=== PATIENT | male | born 1990 | race Caucasian/White ===

== ENCOUNTER 2019-10-04 14:43 | Inpatient (IN) | payer OTHER ==
--- NOTE | 2019-10-04 14:59 | BHS.RME ---
Substance Use & Tx History - Substance Use History Heroin Substance amount: 4 bundles Frequency of use: Daily Substance route: Inhalation (ex: sniffing or snorting), Injection (ex: intravenous or skin popping) Date of Last Use: 10/02/19 Nicotine Substance amount: 1 pack Frequency of use: Daily Substance route: Smoking Date of Last Use: 10/04/19 Physical/Psych/Mental Status - Behavior General Behavior: Increased activity (restlessness, agitation) Eye Contact: Normal - Cooperativeness Cooperativeness: Cooperative - Thinking Thought Processes: Tight, Logical, Goal Directed - Physical Health Problems Is patient presently having any pain?: No Does patient presently have any injuries (include location): No Does patient currently have a fever: No Is patient : No COWS - Scale Resting Pulse: 1= [place] 81-100 Sweatin=Flushed/Facial Moisture Restless Observation: 1= Difficult to Sit Still Pupil Size: 2= Moderately Dilated Bone or Joint Aches: 2= Severe Diffuse Aches Runny Nose/ Eye Tearin= Runny Nose/Eyes GI Upset > 30mins: 1= Stomach Cramp Tremor Observation: 1= Tremor [place], Not Seen Yawning Observation: 1= 1-2x During Session Anxiety or Irritability: 2=Irritable/Anxious Goose Flesh Skin: 3=Piloerection COWS Score: 18
--- NOTE | 2019-10-04 17:34 | HP ---
<Silvina Weiss - Last Filed: 10/04/19 18:10> CIWA Score - Admission Criteria OASAS Guidelines: Admission for Medically Managed Detox: Requires at least one of the followin. CIWA greater than 12 2. Seizures within the past 24 hours 3. Delirium tremens within the past 24 hours 4. Hallucinations within the past 24 hours 5. Acute intervention needed for co occurring medical disorder 6. Acute intervention needed for co occurring psychiatric disorder 7. Severe withdrawal that cannot be handled at a lower level of care (continued vomiting, continued diarrhea, abnormal vital signs) requiring intravenous medication and/or fluids 8. <Mark Mccarthy - Last Filed: 10/04/19 18:35> COWS - Scale Resting Pulse: 1= [place] 81-100 Sweatin=Flushed/Facial Moisture Restless Observation: 1= Difficult to Sit Still Pupil Size: 2= Moderately Dilated Bone or Joint Aches: 2= Severe Diffuse Aches Runny Nose/ Eye Tearin= Runny Nose/Eyes GI Upset > 30mins: 1= Stomach Cramp Tremor Observation: 1= Tremor [place], Not Seen Yawning Observation: 1= 1-2x During Session Anxiety or Irritability: 2=Irritable/Anxious Goose Flesh Skin: 3=Piloerection COWS Score: 18 CIWA Score - Admission Criteria OASAS Guidelines: Admission for Medically Managed Detox: Requires at least one of the followin. CIWA greater than 12 2. Seizures within the past 24 hours 3. Delirium tremens within the past 24 hours 4. Hallucinations within the past 24 hours 5. Acute intervention needed for co occurring medical disorder 6. Acute intervention needed for co occurring psychiatric disorder 7. Severe withdrawal that cannot be handled at a lower level of care (continued vomiting, continued diarrhea, abnormal vital signs) requiring intravenous medication and/or fluids 8. Admitting History and Physical - Admission Chief Complaint: Mr. Ney Michael is a 28yo male who presents to [facility] today requesting for detox from opiates. History of Present Illness: Mr. Ney Michael is a 28yo male who presents to [facility] today requesting for detox from opiates. PMH:NONE PSH:NONE PSYCH:DEPRESSION,ANXIETY-NOT ON MEDS FOR 2 MONTHS NOW SOCIAL/DOMICILED: LIVES IN [place] WITH FATHER LEGAL:NONE Substance Use & Tx History - Substance Use History Heroin Substance amount: 4 bundles Frequency of use: Daily Substance route: Inhalation (ex: sniffing or snorting), Injection (ex: intravenous or skin popping) Date of Last Use: 10/02/19 First use: Age 23 Nicotine Substance amount: 1/2-1 pack Frequency of use: Daily Substance route: Smoking Date of Last Use: 10/04/19 Admission ROS S - HPI Chief Complaint: Mr. Ney Michael is a 28yo male who presents to [facility] today requesting for detox from opiates. Exam Limitations: No Limitations - Ebola screening Have you traveled outside of the country in the last 21 days: No Have you been sick,other than usual withdrawal symptoms: No Do you have a fever: No - Review of Systems Constitutional: Chills, Diaphoresis EENT: reports: No Symptoms Reported Respiratory: reports: No Symptoms reported Cardiac: reports: No Symptoms Reported GI: reports: No Symptoms Reported : reports: No Symptoms Reported Musculoskeletal: reports: No Symptoms Reported Integumentary: reports: Lumps Neuro: reports: No Symptoms reported Endocrine: reports: No Symptoms Reported Hematology: reports: No Symptoms Reported Psychiatric: reports: Orientated x3, Anxious, Depressed (ANXIETY, DEPRESSION; NOT ON MEDS) Patient History - PPD History Previous Implant?: Yes Documented Results: Negative w/proof Implanted On Prior [facility] Admission?: No PPD to be Administered?: Yes - Smoking Cessation Smoking history: Current every day smoker Have you smoked in the past 12 months: Yes Aproximately how many cigarettes per day: 10 Hx Chewing Tobacco Use: No Initiated information on smoking cessation: Yes 'Breaking Loose' booklet given: 10/04/19 Admission Physical Exam [facility] Physical General Appearance: Yes: Within Normal Limits, No Apparent Distress, Nourished, Appropriately Dressed HEENTM: Yes: Within Normal Limits, EOMI, Hearing grossly Normal, Normocephalic, Normal Voice, MARIANA Respiratory: Yes: Within Normal Limits, Chest Non-Tender, Lungs Clear, Normal Breath Sounds, No Respiratory Distress, No Accessory Muscle Use Neck: Yes: Within Normal Limits, No masses,lesions,Nodules, Supple Cardiology: Yes: Within Normal Limits, Regular Rhythm, Regular Rate, S1, S2 Abdominal: Yes: Within Normal Limits, Normal Bowel Sounds, Non Tender, Flat, Soft Genitourinary: Yes: Within Normal Limits Back: Yes: Within Normal Limits, Normal Inspection Musculoskeletal: Yes: Within Normal Limits Extremities: Yes: Within Normal Limits, Normal Capillary Refill, Normal Inspection, Normal Range of Motion, Non-Tender Neurological: Yes: Within Normal Limits, Fully Oriented, Alert Integumentary: Yes: Within Normal Limits, Normal Color - Diagnostic (1) Heroin dependence Current Visit: Yes Status: Chronic (2) Nicotine dependence Current Visit: Yes Status: Chronic Cleared for Admission [facility] - Detox or Rehab [facility] Level of Care: Medically Managed Detox Regimen/Protocol: Librium, Methadone Screened but not Admitted - Documentation of Visit Screened but not Admitted: No Breathalyzer - Breathalyzer Breathalyzer: 0 Urine Drug Screen - Results Urine drug screen results: THC-Marijuana, DALIA-Cocaine, FEN-Fentanyl, MOP-Opiates Inpatient Rehab Admission - Rehab Decision to Admit Inpatient rehab admission?: No
[2019-10-04] MEDS ORDERED: METHADONE HCL 10 MG TABLET (FOR DETOX USE ONLY) PO ONE (17:45)
[2019-10-04] MEDS ORDERED: MAGNESIUM HYDROX 2400MG/30ML ORAL SUSPENSION 30 ML CUP PO PRN (17:45)
[2019-10-04] MEDS ORDERED: ONDANSETRON *ODT* 4 MG TABLET SL ONE (17:45)
[2019-10-04] MEDS ORDERED: MAG HYDROX/AL HYDROX/SIMETH 30 ML UNIT-DOSE CUP PO PRN (17:45)
[2019-10-04] MEDS ORDERED: chlordiazePOXIDE HCL 25 MG CAPSULE PO PRN (17:45)
[2019-10-04] MEDS ORDERED: BISMUTH SUBSALICYLATE 524 MG/30 ML UD PO PRN (17:45)
[2019-10-04] MEDS ORDERED: MAGNESIUM CITRATE 300 ML BOTTLE PO PRN (17:45)
[2019-10-04] MEDS ORDERED: ACETAMINOPHEN 325 MG TABLET (FP) PO PRN ×2 (17:45)
[2019-10-04] MEDS ORDERED: IBUPROFEN 400 MG TABLET (FP) PO PRN (17:45)
[2019-10-04] MEDS ORDERED: MENTHOL/PHENOL 1 EACH UD MM PRN (17:45)
[2019-10-04] MEDS ORDERED: cloNIDine HCL 0.1 MG TABLET PO PRN (17:45)
[2019-10-04] MEDS ORDERED: hydrOXYzine PAMOATE 25 MG CAPSULE (FP) PO SCH (18:00)
[2019-10-04] MEDS ORDERED: NICOTINE 14 MG/24 HOURS TOPICAL PATCH TD SCH (18:00)
--- NOTE | 2019-10-04 18:15 | PN ---
Teaching Attending Note Name of Resident: Mark Mccarthy ATTENDING PHYSICIAN STATEMENT I saw and evaluated the patient. I reviewed the resident's note and discussed the case with the resident. I agree with the resident's findings and plan as documented. SUBJECTIVE: 28 y.o. male requesting detox from heroin use , reports 2-3 bundles via IV , latest use Tuesday ( 2 days ago ) utox : fen , mop , rivera , thc admits to cocaine use via inhalation . This is his 1st detox . tobacco : 1/2 ppd -1 ppd denies any medical / psych issues. OBJECTIVE: wnwd P 82 BP 115/63 ASSESSMENT AND PLAN: OUD - Methadone detox
[2019-10-04] MEDS ORDERED: ONDANSETRON *ODT* 4 MG TABLET SL PRN (18:18)
[2019-10-04] MEDS ORDERED: MELATONIN 5 MG TABLETS PO PRN (18:19)
[2019-10-04 19:51] VITALS: BMI 25.7
[2019-10-04] MEDS: PRENATAL VITAMINS W/ FOLIC ACID TABLET (FP) PO SCH (20:53)
[2019-10-04] MEDS: NICOTINE POLACRILEX 2 MG GUM BUC PRN (20:57)
[2019-10-04] MEDS ORDERED: MELATONIN 5 MG TABLETS PO SCH (22:00)
[2019-10-04] MEDS: THIAMINE HCL 100 MG TABLET (FP) PO SCH (22:33)
[2019-10-04] MEDS ORDERED: chlordiazePOXIDE HCL 25 MG CAPSULE PO SCH (23:00)
[2019-10-05] MEDS: NICOTINE POLACRILEX 2 MG GUM BUC PRN ×3 (08:41→17:36)
[2019-10-05] MEDS ORDERED: METHADONE HCL 10 MG TABLET (FOR DETOX USE ONLY) ONE (09:39)
[2019-10-05] MEDS ORDERED: METHADONE HCL 5 MG TABLET (FOR DETOX USE ONLY) ONE (09:40)
--- NOTE | 2019-10-05 09:58 | PN ---
S COWS - Scale Resting Pulse: 0= [place] 80 or Below Sweatin= No chills or Flushing Restless Observation: 0= Sits Still Pupil Size: 2= Moderately Dilated Bone or Joint Aches: 0= None Runny Nose/ Eye Tearin= None GI Upset > 30mins: 0= None Tremor Observation of Outstretched Hands: 0= None Yawning Observation: 0= None Anxiety or Irritability: 0= None Goose Flesh Skin: 0=Smooth Skin COWS Score: 2 BHS Progress Note (SOAP) Subjective: Home Medication List Medication Instructions Recorded Confirmed Type NK [No Known Home Medication] 10/04/19 10/04/19 History Active Medications Generic Name Dose Route Start Last Admin Trade Name Freq PRN Reason Stop Dose Admin Acetaminophen 650 mg 10/04/19 17:45 Tylenol - PO Q6H PRN PAIN LEVEL 4 - 6 Acetaminophen 650 mg 10/04/19 17:45 Tylenol - PO Q6H PRN FEVER Al Hydroxide/Mg Hydroxide 30 ml 10/04/19 17:45 Mylanta Oral Suspension - PO Q6H PRN DYSPEPSIA Bismuth Subsalicylate 524 mg 10/04/19 17:45 Pepto-Bismol - PO Q1H PRN DIARRHEA Clonidine 0.1 mg 10/04/19 17:45 Catapres - PO 10/06/19 23:59 Q4H PRN Withdrawal Symptoms Eucalyptus/Menthol/Phenol/Sorbitol 1 each 10/04/19 17:45 Cepastat Lozenge - MM 10/10/19 17:45 Q4H PRN SORE THROAT Hydroxyzine Pamoate 25 mg 10/04/19 18:17 Vistaril - PO 10/10/19 17:45 Q4H PRN ANXIETY Ibuprofen 400 mg 10/04/19 17:45 Motrin - PO Q6H PRN PAIN LEVEL 1 - 3 Magnesium Citrate 300 ml 10/04/19 17:45 Citroma - PO Q48H PRN CONSTIPATION Magnesium Hydroxide 30 ml 10/04/19 17:45 Milk Of Magnesia - PO PRN PRN CONSTIPATION Melatonin 5 mg 10/04/19 18:19 Melatonin PO HS PRN INSOMNIA Methadone HCl 5 mg 10/09/19 06:00 Dolophine - PO 10/09/19 06:01 ONCE@0600 ONE Methadone HCl 10 mg 10/08/19 10:00 Dolophine - PO 10/08/19 10:01 ONCE ONE Methadone HCl 20 mg 10/06/19 10:00 Dolophine - PO 10/06/19 10:01 ONCE ONE Methadone HCl 20 mg/ Methadone 25 mg 10/05/19 10:00 HCl 5 mg PO 10/05/19 10:01 ONCE ONE Methadone HCl 10 mg/ Methadone 15 mg 10/07/19 10:00 HCl 5 mg PO 10/07/19 10:01 ONCE ONE Methocarbamol 500 mg 10/04/19 17:45 Robaxin - PO 10/10/19 17:45 Q6H PRN MUSCLE SPASMS Nicotine Polacrilex 2 mg 10/04/19 17:45 10/05/19 08:41 Nicorette Gum - BUC 2 mg Q2H PRN Administration NICOTINE REPLACEMENT RX Ondansetron HCl 4 mg 10/04/19 18:18 Zofran Odt - SL BID PRN NAUSEA Multivit/Folic Acid/Iron 1 tab 10/04/19 17:45 10/04/19 20:53 Vitamins (Sjr) - PO 1 tab DAILY NELLIE Administration Thiamine HCl 100 mg 10/04/19 22:00 10/04/19 22:33 Vitamin B1 - PO Not Given HS NELLIE Objective: 10/05/19 09:57 PE 10/05/19 09:57 PE Gnl: WDWN, in no distress, in bed Mental status: nl mentation Motor: no tremor Coordination: nl Assessment: 10/05/19 09:57 1. Opioid use disorder Plan: 1. Methadone protocol, anticipated discharege on 10/08 2. routine labs drawn today
[2019-10-05] MEDS ORDERED: METHADONE (DETOX) 20 MG, METHADONE (DETOX) 5 MG PO ONE (10:00)
--- NOTE | 2019-10-05 10:00 | CONSULT ---
[facility] Psychiatric Consult - Data Date of interview: 10/05/19 Admission source: Self-referred Identifying data: Mr Michael is a 29 years old single male, unemployed with no source of income, domiciled living with family seeking detox treatment for opioid Substance Abuse History: Reports history of heroin use. Refer to addiction counselor's summary for further information Medical History: Unremakable. Smokes 10 cigarettes daily Psychiatric History: This is patient's first admission to this facility. Reports that he has been receiving treatment for Panic Disorder on & off for the past 10 years. Reports that he has seen several psychiatrists and he has been prescribed different medications including Prozac and Klonopin. Told staff writer that his most recent psychiatric contact and treatment was a couple of years ago. Denies previous psychiatric hospitalization or suicidal attempt. At present, reports feeling mildly anxious and sleeping poorly Physical/Sexual Abuse/Trauma History: Denies history of abuse as a child or DV relationship as an adult Mental Status Exam - Mental Status Exam Alert and Oriented to: Time, Place, Person Cognitive Function: Fair Patient Appearance: Well Groomed Mood: Anxious Affect: Appropriate Patient Behavior: Cooperative Speech Pattern: Clear Voice Loudness: Normal Thought Process: Intact, Goal Oriented Thought Disorder: Not Present Hallucinations: Denies Suicidal Ideation: Denies Homicidal Ideation: Denies Insight/Judgement: Poor Sleep: Poorly Appetite: Good Muscle strength/Tone: Normal Gait/Station: Normal Psychiatric Findings - Problem List ([place] 1, 2,3) (1) Anxiety disorder Current Visit: Yes Status: Chronic (2) Panic disorder Current Visit: Yes Status: Ruled-out (3) Substance-induced anxiety disorder Current Visit: Yes Status: Acute (4) Substance-induced sleep disorder Current Visit: Yes Status: Acute (5) Uncomplicated opioid dependence Current Visit: Yes Status: Acute (6) Nicotine dependence Current Visit: Yes Status: Chronic - Initial Treatment Plan Initial Treatment Plan: 1) Start Belsomra 10 mg po HS prn for insomnia and Vistaril 50 mg po Q 4hrs prn for anxiety. 3) Continue inpatient detoxification
[2019-10-05] MEDS: PRENATAL VITAMINS W/ FOLIC ACID TABLET (FP) PO SCH (10:04)
[2019-10-05 11:09] LABS: HEMATOCRIT 37.1 % (35.4-49); HEMOGLOBIN 12.4 GM/dL (11.7-16.9); MCH 29.1 pg (25.7-33.7); MCHC 33.3 g/dl (32.0-35.9); MEAN CELL VOLUME 87.2 fl (80-96); MEAN PLT VOLUME 10.7 fl (7.5-11.1); PLATELET COUNT 208 K/MM3 (134-434); RBC 4.25 M/mm3 (4.00-5.60)
[2019-10-05 11:34] LABS: ALBUMIN 3.6 g/dl (3.4-5.0); BILIRUBIN,TOTAL 0.3 mg/dL (0.2-1); BLOOD UREA NITROGEN 15.9 mg/dL (7-18); CALCIUM 9.1 mg/dL (8.5-10.1); CREATININE 0.8 mg/dL (0.55-1.3); POTASSIUM 3.9 mmol/L (3.5-5.1); TOT PROT 6.5 g/dl (6.4-8.2)
--- NOTE | 2019-10-05 13:21 | EKG ---
Test Reason : Blood Pressure : / mmHG Vent. Rate : 055 BPM Atrial Rate : 055 BPM P-R Int : 134 ms QRS Dur : 088 ms QT Int : 434 ms P-R-T Axes : 044 085 062 degrees QTc Int : 415 ms SINUS BRADYCARDIA WITH SINUS ARRHYTHMIA EARLY REPOLARIZATION NO PREVIOUS ECGS AVAILABLE Confirmed by SAURABH BAÑUELOS MD ([id number]) on 10/05/2019 1:21:37 PM Referred By: Confirmed By:SAURABH BAÑUELOS MD
[2019-10-05] MEDS: hydrOXYzine PAMOATE 25 MG CAPSULE (FP) PO PRN ×2 (13:48→22:23)
[2019-10-05] MEDS: METHOCARBAMOL 500 MG TABLET PO PRN (13:48)
[2019-10-05] MEDS ORDERED: SUVOREXANT 10 MG TABLET PO PRN (22:00)
[2019-10-05] MEDS: THIAMINE HCL 100 MG TABLET (FP) PO SCH (22:22)
[2019-10-06] MEDS ORDERED: chlordiazePOXIDE HCL 25 MG CAPSULE PO SCH (05:00)
[2019-10-06] MEDS ORDERED: METHADONE HCL 10 MG TABLET (FOR DETOX USE ONLY) PO ONE (10:00)
[2019-10-06] MEDS: PRENATAL VITAMINS W/ FOLIC ACID TABLET (FP) PO SCH (10:17)
[2019-10-06] MEDS: hydrOXYzine PAMOATE 25 MG CAPSULE (FP) PO PRN ×2 (10:17→15:22)
[2019-10-06] MEDS: METHOCARBAMOL 500 MG TABLET PO PRN (10:18)
--- NOTE | 2019-10-06 13:09 | PN ---
BHS COWS - Scale Resting Pulse: 0= [place] 80 or Below Sweatin= Beads of Sweat on Face Restless Observation: 1= Difficult to Sit Still Pupil Size: 0= Normal to Room Light Bone or Joint Aches: 1= Mild Discomfort Runny Nose/ Eye Tearin= None GI Upset > 30mins: 0= None Tremor Observation of Outstretched Hands: 0= None Yawning Observation: 1= 1-2x During Session Anxiety or Irritability: 2=Irritable/Anxious Goose Flesh Skin: 0=Smooth Skin COWS Score: 8 BHS Progress Note (SOAP) Subjective: c/o anxiety, muscle aches, sweats, and irritability. Objective: 10/06/19 13:09 Vital Signs 10/06/19 10/06/19 06:18 09:09 Temperature 98.0 F 96.5 F L Pulse Rate 53 L 56 L Respiratory 18 16 Rate Blood Pressure 103/66 114/65 O2 Sat by Pulse 98 Oximetry (%) Laboratory Last Values WBC 7.0 K/mm3 (4.0-10.0) 10/05/19 07:05 RBC 4.25 M/mm3 (4.00-5.60) 10/05/19 07:05 Hgb 12.4 GM/dL (11.7-16.9) 10/05/19 07:05 Hct 37.1 % (35.4-49) 10/05/19 07:05 MCV 87.2 fl (80-96) 10/05/19 07:05 MCH 29.1 pg (25.7-33.7) 10/05/19 07:05 MCHC 33.3 g/dl (32.0-35.9) 10/05/19 07:05 RDW 14.0 % (11.9-15.9) 10/05/19 07:05 Plt Count 208 K/MM3 (134-434) 10/05/19 07:05 MPV 10.7 fl (7.5-11.1) 10/05/19 07:05 Sodium 143 mmol/L (136-145) 10/05/19 07:05 Potassium 3.9 mmol/L (3.5-5.1) 10/05/19 07:05 Chloride 110 mmol/L (98-107) H 10/05/19 07:05 Carbon Dioxide 27 mmol/L (21-32) 10/05/19 07:05 Anion Gap 6 MMOL/L (8-16) L 10/05/19 07:05 BUN 15.9 mg/dL (7-18) 10/05/19 07:05 Creatinine 0.8 mg/dL (0.55-1.3) 10/05/19 07:05 Est GFR (CKD-EPI)AfAm 137.96 10/05/19 07:05 Est GFR (CKD-EPI)NonAf 119.03 10/05/19 07:05 Random Glucose 96 mg/dL (74-106) 10/05/19 07:05 Calcium 9.1 mg/dL (8.5-10.1) 10/05/19 07:05 Total Bilirubin 0.3 mg/dL (0.2-1) 10/05/19 07:05 AST 14 U/L (15-37) L 10/05/19 07:05 ALT 25 U/L (13-61) 10/05/19 07:05 Alkaline Phosphatase 84 U/L (45-117) 10/05/19 07:05 Total Protein 6.5 g/dl (6.4-8.2) 10/05/19 07:05 Albumin 3.6 g/dl (3.4-5.0) 10/05/19 07:05 Syphilis Serology Non-reactive (NONREACTIVE) 10/05/19 07:05 Labs noted. Assessment: 10/06/19 13:09 AOx 3, in no acute respiratory distress. Full ROM, ambulating in the unit. Withdrawal symptoms. Plan: continue detox.
[2019-10-06] MEDS: NICOTINE POLACRILEX 2 MG GUM BUC PRN (13:20)
[2019-10-06 13:24] VITALS: BP 145/72; PULSE 78; TEMP 97.1
--- NOTE | 2019-10-06 19:42 | DS ---
[facility] Detox Discharge Summary Admission Date: 10/04/19 Discharge Date: 10/06/19 - Physical Exam Results Vital Signs: Vital Signs Temperature 97.1 F L 10/06/19 12:35 Pulse Rate 78 10/06/19 12:35 Respiratory Rate 18 10/06/19 12:35 Blood Pressure 145/72 10/06/19 12:35 O2 Sat by Pulse Oximetry (%) 95 10/06/19 12:35 Pertinent Admission Physical Exam Findings: WITHDRAWAL SX Laboratory Last Values WBC 7.0 K/mm3 (4.0-10.0) 10/05/19 07:05 RBC 4.25 M/mm3 (4.00-5.60) 10/05/19 07:05 Hgb 12.4 GM/dL (11.7-16.9) 10/05/19 07:05 Hct 37.1 % (35.4-49) 10/05/19 07:05 MCV 87.2 fl (80-96) 10/05/19 07:05 MCH 29.1 pg (25.7-33.7) 10/05/19 07:05 MCHC 33.3 g/dl (32.0-35.9) 10/05/19 07:05 RDW 14.0 % (11.9-15.9) 10/05/19 07:05 Plt Count 208 K/MM3 (134-434) 10/05/19 07:05 MPV 10.7 fl (7.5-11.1) 10/05/19 07:05 Sodium 143 mmol/L (136-145) 10/05/19 07:05 Potassium 3.9 mmol/L (3.5-5.1) 10/05/19 07:05 Chloride 110 mmol/L (98-107) H 10/05/19 07:05 Carbon Dioxide 27 mmol/L (21-32) 10/05/19 07:05 Anion Gap 6 MMOL/L (8-16) L 10/05/19 07:05 BUN 15.9 mg/dL (7-18) 10/05/19 07:05 Creatinine 0.8 mg/dL (0.55-1.3) 10/05/19 07:05 Est GFR (CKD-EPI)AfAm 137.96 10/05/19 07:05 Est GFR (CKD-EPI)NonAf 119.03 10/05/19 07:05 Random Glucose 96 mg/dL (74-106) 10/05/19 07:05 Calcium 9.1 mg/dL (8.5-10.1) 10/05/19 07:05 Total Bilirubin 0.3 mg/dL (0.2-1) 10/05/19 07:05 AST 14 U/L (15-37) L 10/05/19 07:05 ALT 25 U/L (13-61) 10/05/19 07:05 Alkaline Phosphatase 84 U/L (45-117) 10/05/19 07:05 Total Protein 6.5 g/dl (6.4-8.2) 10/05/19 07:05 Albumin 3.6 g/dl (3.4-5.0) 10/05/19 07:05 Syphilis Serology Non-reactive (NONREACTIVE) 10/05/19 07:05 COVID-19 ([facility]) Not detected (Not Detected) 10/04/19 23:00 - Medication Discharge Medications: Ambulatory Orders NK [No Known Home Medication] 10/04/19 - Diagnosis (1) Substance-induced sleep disorder Current Visit: Yes Status: Acute (2) Uncomplicated opioid dependence Current Visit: Yes Status: Acute (3) Nicotine dependence Current Visit: Yes Status: Chronic Qualifiers: Nicotine product type: cigarettes Substance use status: uncomplicated Qualified Code(s): F17.210 - Nicotine dependence, cigarettes, uncomplicated - AMA Did Patient Leave Against Medical Advice: Yes
[2019-10-07] MEDS ORDERED: chlordiazePOXIDE HCL 10 MG CAPSULE PO PRN
[2019-10-07] MEDS ORDERED: chlordiazePOXIDE HCL 10 MG CAPSULE PO SCH (05:00)
[2019-10-07] MEDS ORDERED: METHADONE (DETOX) 10 MG, METHADONE (DETOX) 5 MG PO ONE (10:00)
[2019-10-08] MEDS ORDERED: chlordiazePOXIDE HCL 10 MG CAPSULE PO SCH (05:00)
[2019-10-08] MEDS ORDERED: METHADONE HCL 10 MG TABLET (FOR DETOX USE ONLY) PO ONE (10:00)
[2019-10-09] MEDS ORDERED: chlordiazePOXIDE HCL 10 MG CAPSULE PO ONE (05:00)
[2019-10-09] MEDS ORDERED: METHADONE HCL 5 MG TABLET (FOR DETOX USE ONLY) PO ONE (06:00)
== END 2019-10-06 19:30 | disposition left against medical advice (07) | DRG 770 ==
LOC: YASAS 14:43 → Y3N 18:40
PROVIDERS: ADMIT Allergy & Immunology; ATTEND Allergy & Immunology
PROC: HZ2ZZZZ Detoxification Services for Substance Abuse Treatment (ICD-10-PCS; principal; 2019-10-04)
DX: F11.23 Opioid dependence with withdrawal (principal); F14.10 Cocaine abuse, uncomplicated; F17.210 Nicotine dependence, cigarettes, uncomplicated; F19.282 Other psychoactive substance dependence with psychoactive substance-induced sleep disorder; F19.280 Other psychoactive substance dependence with psychoactive substance-induced anxiety disorder; F41.9 Anxiety disorder, unspecified; F41.0 Panic disorder [episodic paroxysmal anxiety]; F32.9 Major depressive disorder, single episode, unspecified
CPT/HCPCS: 36415; 80053; 85027; 86780; 93005; 93010; U0003

== ENCOUNTER 2019-10-08 08:41 | Inpatient (IN) | payer OTHER ==
--- NOTE | 2019-10-08 09:00 | BHS.RME ---
COWS - Scale Resting Pulse: 0= [place] 80 or Below Sweatin=Flushed/Facial Moisture Restless Observation: 3= Extraneous Movement Pupil Size: 1= Pupils >than Normal Bone or Joint Aches: 4=Acute Joint/Muscle Pain Runny Nose/ Eye Tearin= Runny Nose/Eyes GI Upset > 30mins: 1= Stomach Cramp Tremor Observation: 2= Slight Tremor Visible Yawning Observation: 2= >3x During Session Anxiety or Irritability: 2=Irritable/Anxious Goose Flesh Skin: 3=Piloerection COWS Score: 22
[2019-10-08 09:33] VITALS: BMI 25.4
--- NOTE | 2019-10-08 10:12 | HP ---
COWS - Scale Resting Pulse: 0= [place] 80 or Below Sweatin=Flushed/Facial Moisture Restless Observation: 3= Extraneous Movement Pupil Size: 1= Pupils >than Normal Bone or Joint Aches: 4=Acute Joint/Muscle Pain Runny Nose/ Eye Tearin= Runny Nose/Eyes GI Upset > 30mins: 1= Stomach Cramp Tremor Observation: 2= Slight Tremor Visible Yawning Observation: 2= >3x During Session Anxiety or Irritability: 2=Irritable/Anxious Goose Flesh Skin: 3=Piloerection COWS Score: 22 CIWA Score - Admission Criteria OASAS Guidelines: Admission for Medically Managed Detox: Requires at least one of the followin. CIWA greater than 12 2. Seizures within the past 24 hours 3. Delirium tremens within the past 24 hours 4. Hallucinations within the past 24 hours 5. Acute intervention needed for co occurring medical disorder 6. Acute intervention needed for co occurring psychiatric disorder 7. Severe withdrawal that cannot be handled at a lower level of care (continued vomiting, continued diarrhea, abnormal vital signs) requiring intravenous medication and/or fluids 8. Admitting History and Physical - Admission Chief Complaint: " I want to do it right this time." History of Present Illness: 29 year old male with opioid dependence with withdrawal. He was not able to complete detox 10/03-10/06/19 due to conflicts with other patients and poor attitudes by other patients while in detox. Heroin: 4 bundles IN daily at age 23 and last used 10/07/19 3AM, never order dose and does not carry narcan Nicotine: 1 pack, SM started at age 16, last 10/08/19. PMH: None Psurg: None Psych: Depression, Anxiety - No meds x 2 months Lives in [place] with father. No legal issues. Patient meets criteria for detox due to untreated psychiatric co-morbidities. COWS=22 Urine Tox: MTD, Fen, THC, AMP, MOP, DALIA Does admit to one time use of cocaine and amphetamine and marijuana. History Source: Patient Limitations to Obtaining History: No Limitations - Past Medical History Psych: Yes: Anxiety, Depression - Past Surgical History Past Surgical History: Yes: None - Smoking History Smoking history: Current every day smoker Have you smoked in the past 12 months: Yes Aproximately how many cigarettes per day: 20 - Alcohol/Substance Use History of Substance Use: reports: Cocaine, Heroin, Marijuana Date of Last Use: 10/07/19 - Social History Usual Living Arrangement: Yes: Alone Do you think of yourself as: Straight/Heterosexual ADL: Independent Occupation: unemployed, construction carpentry History of Recent Travel: No Admission [facility] Allergies/Adverse Reactions: Allergies Allergy/AdvReac Type Severity Reaction Status Date / Time No Known Allergies Allergy Verified 10/08/19 09:26 Exam Limitations: No Limitations - Ebola screening Have you traveled outside of the country in the last 21 days: No Have you had contact with anyone from an Ebola affected area: No Have you been sick,other than usual withdrawal symptoms: No Do you have a fever: No - Review of Systems Constitutional: Diaphoresis EENT: reports: No Symptoms Reported Respiratory: reports: No Symptoms reported Cardiac: reports: No Symptoms Reported GI: reports: No Symptoms Reported : reports: No Symptoms Reported Musculoskeletal: reports: No Symptoms Reported Integumentary: reports: No Symptoms Reported Neuro: reports: No Symptoms reported Endocrine: reports: No Symptoms Reported Hematology: reports: No Symptoms Reported Psychiatric: reports: Judgement Intact, Orientated x3, Agitated, Anxious Other Systems: Reviewed and Negative Patient History - Patient Medical History Hx Asthma: No Hx Chronic Obstructive Pulmonary Disease (COPD): No Hx Cardiac Disorders: No Hx Hypertension: No Hx Seizures: No Hx Diabetes: No Hx Gastrointestinal Disorders: No Hx Genitourinary Disorders: No Hx Sexually Transmitted Disorders: No Hx Renal Disease (ESRD): No Hx Depression: No Hx Suicide Attempt: No Hx Schizophrenia: No - Patient Surgical History Past Surgical History: No Hx Neurologic Surgery: No Hx Cataract Extraction: No Hx Cardiac Surgery: No Hx Lung Surgery: No Hx Breast Surgery: No Hx Breast Biopsy: No Hx Abdominal Surgery: No Hx Appendectomy: No Hx Cholecystectomy: No Hx Genitourinary Surgery: No Hx Section: No Hx Orthopedic Surgery: No Anesthesia Reaction: No - PPD History Previous Implant?: Yes Documented Results: Negative w/proof Implanted On Prior [facility] Admission?: Yes Date: 10/06/19 Results: neg - Reproductive History Patient : (n/a) - Smoking Cessation Smoking history: Current every day smoker Have you smoked in the past 12 months: Yes Aproximately how many cigarettes per day: 20 Cigars Per Day: 0 Hx Chewing Tobacco Use: No Initiated information on smoking cessation: Yes 'Breaking Loose' booklet given: 10/08/19 - Substances abused Heroin Frequency: Daily Amount used: 2 bundles Age of first use: 21 Date of last use: 10/07/19 Admission Physical Exam BHS - Vital Signs Vital Signs: Vital Signs - 24 hr 10/08/19 09:27 Temperature 98.0 F Pulse Rate 108 H Respiratory 20 Rate Blood Pressure 116/67 - Physical General Appearance: Yes: Mild Distress, Tremorous, Irritable, Sweating, Anxious HEENTM: Yes: EOMI, Hearing grossly Normal, Normal ENT Inspection, Normocephalic, Normal Voice, MARIANA, Pharynx Normal, Tm's normal Respiratory: Yes: Chest Non-Tender, Lungs Clear, Normal Breath Sounds, No Respiratory Distress, No Accessory Muscle Use Neck: Yes: No masses,lesions,Nodules, Supple, Trachea in good position Breast: Yes: Breast Exam Deferred Cardiology: Yes: Regular Rhythm, Regular Rate, S1, S2 Abdominal: Yes: Normal Bowel Sounds, Non Tender, Flat, Soft Genitourinary: Yes: Within Normal Limits Back: Yes: Normal Inspection Musculoskeletal: Yes: full range of Motion, Gait Steady, Pelvis Stable Extremities: Yes: Normal Capillary Refill, Normal Inspection, Normal Range of Motion, Non-Tender Neurological: Yes: hand assembler II-XII NML intact, Fully Oriented, Alert, Motor Strength 5/5, Normal Mood/Affect, Normal Response Integumentary: Yes: Normal Color, Dry, Warm Lymphatic: Yes: Within Normal Limits - Diagnostic (1) Opioid dependence with withdrawal Current Visit: Yes Status: Acute (2) Substance-induced anxiety disorder Current Visit: Yes Status: Acute (3) Substance-induced sleep disorder Current Visit: Yes Status: Acute (4) Anxiety disorder Current Visit: No Status: Chronic (5) Nicotine dependence Current Visit: Yes Status: Chronic Qualifiers: Nicotine product type: cigarettes Substance use status: uncomplicated Qualified Code(s): F17.210 - Nicotine dependence, cigarettes, uncomplicated (6) Panic disorder Current Visit: Yes Status: Ruled-out Screened but not Admitted - Documentation of Visit Screened but not Admitted: No Breathalyzer - Breathalyzer Breathalyzer: 0 Urine Drug Screen - Test Device Lot number: [id number] Expiration date: 11/25/20 - Control Is test valid?: Yes - Results Drug screen NEGATIVE: No Urine drug screen results: THC-Marijuana, DALIA-Cocaine, AMP-Amphetamines, FEN- Fentanyl, MOP-Opiates, MTD-Methadone Inpatient Rehab Admission - Rehab Decision to Admit Inpatient rehab admission?: No
[2019-10-08] MEDS ORDERED: MAGNESIUM CITRATE 300 ML BOTTLE PO PRN (10:16)
[2019-10-08] MEDS ORDERED: MAG HYDROX/AL HYDROX/SIMETH 30 ML UNIT-DOSE CUP PO PRN (10:16)
[2019-10-08] MEDS ORDERED: IBUPROFEN 400 MG TABLET (FP) PO PRN (10:16)
[2019-10-08] MEDS ORDERED: BISMUTH SUBSALICYLATE 524 MG/30 ML UD PO PRN (10:16)
[2019-10-08] MEDS ORDERED: MENTHOL/PHENOL 1 EACH UD MM PRN (10:16)
[2019-10-08] MEDS ORDERED: NICOTINE POLACRILEX 2 MG GUM BUC PRN (10:16)
[2019-10-08] MEDS ORDERED: ACETAMINOPHEN 325 MG TABLET (FP) PO PRN (10:16)
[2019-10-08] MEDS ORDERED: MAGNESIUM HYDROX 2400MG/30ML ORAL SUSPENSION 30 ML CUP PO PRN (10:16)
[2019-10-08] MEDS ORDERED: ONDANSETRON *ODT* 4 MG TABLET SL ONE (10:45)
[2019-10-08] MEDS ORDERED: METHADONE HCL 10 MG TABLET (FOR DETOX USE ONLY) PO ONE (10:45)
[2019-10-08] MEDS: PRENATAL VITAMINS W/ FOLIC ACID TABLET (FP) PO SCH (11:04)
[2019-10-08] MEDS: NICOTINE 7 MG/24 HOURS TOPICAL PATCH TD SCH (11:04)
[2019-10-08] MEDS: hydrOXYzine PAMOATE 25 MG CAPSULE (FP) PO SCH ×3 (13:07→21:43)
--- NOTE | 2019-10-08 14:59 | CONSULT ---
[facility] Psychiatric Consult - Data Date of interview: 10/08/19 Admission source: [facility] Identifying data: Readmission to [address] [place] [address] for this 29 y/o male (discharged from [facility] on 10/05/19) for detoxification treatment. MACY issues : heroin, nicotine. 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 Substance Abuse History: Discussed with the patient. MACY profile as follows : Smoking history: Current every day smoker. Have you smoked in the past 12 months: Yes. Aproximately how many cigarettes per day: 20. Cigars Per Day: 0. Hx Chewing Tobacco Use: No. Initiated information on smoking cessation: Yes. 'Breaking Loose' booklet given: 10/08/19. - Substances abused. Heroin. Frequency: Daily. Amount used: 2 bundles. Age of first use: 21. Date of last use: 10/07/19 Medical History: Patient endorses good general health. Psychiatric History: Patient denies history of psychiatric hospitalizations. He indicates that, several years ago, he was diagnosed with ADHD (medicated with methylphenidate), Panic Disorder, MDD and Anxiety Disorder (was prescribed fluoxetine + clonazepam). Mr Michael states that he dropped out of OPD care 3-4 years ago. Patient denies history of suicide attempts. Physical/Sexual Abuse/Trauma History: Patient denies. Additional Comment: Urine drug screen results: THC-Marijuana, DALIA-Cocaine, AMP- Amphetamines, FEN-Fentanyl, MOP-Opiates, MTD-Methadone. Noted. Mental Status Exam - Mental Status Exam Alert and Oriented to: Time, Place, Person Cognitive Function: Good Patient Appearance: Well Groomed (tattoos on both upper extremities) Mood: Hopeful Affect: Appropriate, Normal Range Patient Behavior: Fatigued, Appropriate, Cooperative Speech Pattern: Clear, Appropriate Voice Loudness: Normal Thought Process: Intact, Goal Oriented Thought Disorder: Not Present Hallucinations: Denies Suicidal Ideation: Denies Homicidal Ideation: Denies Insight/Judgement: Poor Sleep: Poorly, Difficulty falling asleep Appetite: Good Gait/Station: Normal Psychiatric Findings - Problem List (Clarinda 1, 2,3) (1) Opioid dependence with withdrawal Current Visit: Yes Status: Acute (2) Nicotine dependence Current Visit: Yes Status: Chronic Qualifiers: Nicotine product type: cigarettes Substance use status: uncomplicated Qualified Code(s): F17.210 - Nicotine dependence, cigarettes, uncomplicated (3) Substance induced mood disorder Current Visit: Yes Status: Chronic (4) Insomnia Current Visit: Yes Status: Chronic - Initial Treatment Plan Initial Treatment Plan: Psychoeducation. Sleep hygiene. Detoxification in progress. MAT services for opioid addiction are discussed in this session. Patient has expressed his preference for quetiapine at bedtime. " It worked for me in the past." Side effects/benefits discussed with the patient. Informed consent granted to MD. Estrada.
[2019-10-08] MEDS: ACETAMINOPHEN 325 MG TABLET (FP) PO PRN (17:05)
[2019-10-08] MEDS: METHOCARBAMOL 500 MG TABLET PO PRN (17:06)
[2019-10-08] MEDS: THIAMINE HCL 100 MG TABLET (FP) PO SCH (21:43)
[2019-10-08] MEDS: QUEtiapine FUMARATE 100 MG TABLET (FP) PO SCH (21:43)
[2019-10-08] MEDS: MELATONIN 5 MG TABLETS PO SCH (21:43)
[2019-10-09] MEDS: hydrOXYzine PAMOATE 25 MG CAPSULE (FP) PO SCH ×5 (06:01→21:09)
--- NOTE | 2019-10-09 08:47 | PN ---
BHS COWS - Scale Resting Pulse: 0= [place] 80 or Below Sweatin= Chills/Flushing Restless Observation: 0= Sits Still Pupil Size: 1= Pupils >than Normal Bone or Joint Aches: 2= Severe Diffuse Aches Runny Nose/ Eye Tearin= Runny Nose/Eyes GI Upset > 30mins: 2= Nausea/Diarrhea Tremor Observation of Outstretched Hands: 2= Slight Tremor Visible Yawning Observation: 2= >3x During Session Anxiety or Irritability: 2=Irritable/Anxious Goose Flesh Skin: 3=Piloerection COWS Score: 17 BHS Progress Note (SOAP) Subjective: 29 years old male admitted on 10/08/19 for opiate withdrawal sx management treating with methadone detox regiment ate breakfast no trouble chewing nor swallowing food tolerated food well feeling tired resting in bed limited conversation with staff Objective: 10/09/19 08:53 Vital Signs - 24 hr 10/08/19 10/08/19 10/08/19 09:27 10:29 10:57 Temperature 98.0 F 98.0 F Pulse Rate 108 H 84 Respiratory 20 18 Rate Blood Pressure 116/67 126/78 O2 Sat by Pulse 100 Oximetry (%) 10/08/19 10/08/19 10/08/19 13:03 16:49 20:53 Temperature 97.8 F 97.3 F L 97.5 F L Pulse Rate 83 74 54 L Respiratory 18 18 18 Rate Blood Pressure 129/73 106/68 118/60 O2 Sat by Pulse 98 99 Oximetry (%) 10/09/19 05:33 Temperature 97.1 F L Pulse Rate 60 Respiratory 18 Rate Blood Pressure 100/60 O2 Sat by Pulse 100 Oximetry (%) 10/09/19 08:53 lab pending Assessment: 10/09/19 08:53 opiate withdrawal 10/09/19 08:54 insomnia Plan: methadone regiment seroquel hs
[2019-10-09] MEDS ORDERED: METHADONE HCL 5 MG TABLET (FOR DETOX USE ONLY) ONE (09:07)
[2019-10-09] MEDS ORDERED: METHADONE HCL 10 MG TABLET (FOR DETOX USE ONLY) ONE (09:07)
[2019-10-09] MEDS: PRENATAL VITAMINS W/ FOLIC ACID TABLET (FP) PO SCH (09:56)
[2019-10-09] MEDS: NICOTINE 7 MG/24 HOURS TOPICAL PATCH TD SCH (09:56)
[2019-10-09] MEDS ORDERED: METHADONE (DETOX) 20 MG, METHADONE (DETOX) 5 MG PO ONE (10:00)
[2019-10-09 11:51] LABS: HEMATOCRIT 38.4 % (35.4-49); HEMOGLOBIN 12.6 GM/dL (11.7-16.9); MCH 28.6 pg (25.7-33.7); MCHC 32.7 g/dl (32.0-35.9); MEAN CELL VOLUME 87.6 fl (80-96); MEAN PLT VOLUME 9.8 fl (7.5-11.1); PLATELET COUNT 179 K/MM3 (134-434); RBC 4.38 M/mm3 (4.00-5.60); RDW 14.2 % (11.9-15.9); WHITE BLOOD COUNT 4.4 K/mm3 (4.0-10.0)
[2019-10-09 12:04] LABS: ALBUMIN 3.6 g/dl (3.4-5.0); BILIRUBIN,TOTAL 0.5 mg/dL (0.2-1); BLOOD UREA NITROGEN 14.5 mg/dL (7-18); CALCIUM 8.9 mg/dL (8.5-10.1); CREATININE 0.7 mg/dL (0.55-1.3); POTASSIUM 5.1 mmol/L (3.5-5.1); TOT PROT 6.5 g/dl (6.4-8.2)
[2019-10-09] MEDS: cloNIDine HCL 0.1 MG TABLET PO PRN ×2 (13:10→21:07)
[2019-10-09] MEDS: METHOCARBAMOL 500 MG TABLET PO PRN (13:10)
[2019-10-09] MEDS: ACETAMINOPHEN 325 MG TABLET (FP) PO PRN (13:10)
[2019-10-09] MEDS: NICOTINE 14 MG/24 HOURS TOPICAL PATCH TD SCH (13:49)
[2019-10-09] MEDS: QUEtiapine FUMARATE 100 MG TABLET (FP) PO SCH (21:09)
[2019-10-09] MEDS: THIAMINE HCL 100 MG TABLET (FP) PO SCH (21:10)
[2019-10-09] MEDS: MELATONIN 5 MG TABLETS PO SCH (21:10)
[2019-10-10] MEDS: hydrOXYzine PAMOATE 25 MG CAPSULE (FP) PO SCH (06:10)
--- NOTE | 2019-10-10 08:48 | PN ---
BHS COWS - Scale Resting Pulse: 0= [place] 80 or Below Sweatin= Chills/Flushing Restless Observation: 0= Sits Still Pupil Size: 1= Pupils >than Normal Bone or Joint Aches: 2= Severe Diffuse Aches Runny Nose/ Eye Tearin= Nasal Congestion GI Upset > 30mins: 2= Nausea/Diarrhea Tremor Observation of Outstretched Hands: 2= Slight Tremor Visible Yawning Observation: 1= 1-2x During Session Anxiety or Irritability: 2=Irritable/Anxious Goose Flesh Skin: 0=Smooth Skin COWS Score: 12 BHS Progress Note (SOAP) Subjective: 29 years old male admitted on 10/08/19 for opiate withdrawal sx management treating with methadone detox regiment seen by psychiatrist alice initiated feeling better today mild muscle cramp with anxiety robaxin 500 mg po x 1 increase vistaril to 50 mg po q6h Objective: 10/10/19 08:50 Vital Signs - 24 hr 10/09/19 10/09/19 10/09/19 12:36 16:43 20:40 Temperature 97.1 F L 97.7 F 97.3 F L Pulse Rate 18 L 54 L 68 Respiratory 127 H 18 18 Rate Blood Pressure 117/61 105/64 125/77 O2 Sat by Pulse 100 100 Oximetry (%) 10/10/19 06:07 Temperature 97.7 F Pulse Rate 56 L Respiratory 18 Rate Blood Pressure 99/51 L O2 Sat by Pulse 98 Oximetry (%) denies dizziness tolerate oral fluid well Laboratory Tests 10/08/19 10/09/19 10/09/19 12:50 08:15 08:15 WBC 4.4 RBC 4.38 Hgb 12.6 Hct 38.4 MCV 87.6 MCH 28.6 MCHC 32.7 RDW 14.2 Plt Count 179 MPV 9.8 Sodium Potassium Chloride Carbon Dioxide Anion Gap BUN Creatinine Est GFR (CKD-EPI)AfAm Est GFR (CKD-EPI)NonAf Random Glucose Calcium Total Bilirubin AST ALT Alkaline Phosphatase Total Protein Albumin Syphilis Serology Non-reactive COVID-19 (NEHA) Not detected 10/09/19 08:15 WBC RBC Hgb Hct MCV MCH MCHC RDW Plt Count MPV Sodium 142 Potassium 5.1 Chloride 108 H Carbon Dioxide 29 Anion Gap 5 L BUN 14.5 Creatinine 0.7 Est GFR (CKD-EPI)AfAm 145.74 Est GFR (CKD-EPI)NonAf 125.75 Random Glucose 89 Calcium 8.9 Total Bilirubin 0.5 AST 16 ALT 25 Alkaline Phosphatase 84 Total Protein 6.5 Albumin 3.6 Syphilis Serology COVID-19 (NEHA) 10/10/19 08:51 lab noted Assessment: 10/10/19 08:51 opiate withdrawal anxiety Plan: methadone regiment vistaril for anxiety robaxin for muscle cramp
[2019-10-10] MEDS ORDERED: METHOCARBAMOL 500 MG TABLET PO ONE (08:50)
[2019-10-10] MEDS ORDERED: METHADONE HCL 10 MG TABLET (FOR DETOX USE ONLY) PO ONE (10:00)
[2019-10-10] MEDS: NICOTINE 14 MG/24 HOURS TOPICAL PATCH TD SCH (10:09)
[2019-10-10] MEDS: PRENATAL VITAMINS W/ FOLIC ACID TABLET (FP) PO SCH (10:09)
[2019-10-10] MEDS: hydrOXYzine PAMOATE 50 MG CAPSULE (FP) PO SCH ×3 (11:41→21:59)
--- NOTE | 2019-10-10 13:46 | PN ---
[facility] Progress Note Note: Psychiatry Attending's note : Approached by the patient. Complaint : irritability, insomnia. Mr Michael requests optimization of seroquel dose. Seroquel dose is increased to 200 mg po hs. Side effects/benefits revisited with the patient. Consent (verbal) granted.
[2019-10-10] MEDS: cloNIDine HCL 0.1 MG TABLET PO PRN (15:17)
[2019-10-10] MEDS: METHOCARBAMOL 500 MG TABLET PO PRN (17:23)
[2019-10-10] MEDS: QUEtiapine FUMARATE 200 MG TABLET PO SCH (21:59)
[2019-10-10] MEDS: THIAMINE HCL 100 MG TABLET (FP) PO SCH (21:59)
[2019-10-10] MEDS: MELATONIN 5 MG TABLETS PO SCH (21:59)
[2019-10-11] MEDS: hydrOXYzine PAMOATE 50 MG CAPSULE (FP) PO SCH ×4 (06:14→22:12)
[2019-10-11] MEDS ORDERED: METHADONE HCL 10 MG TABLET (FOR DETOX USE ONLY) ONE (09:07)
[2019-10-11] MEDS ORDERED: METHADONE HCL 5 MG TABLET (FOR DETOX USE ONLY) ONE (09:08)
[2019-10-11] MEDS ORDERED: METHADONE (DETOX) 10 MG, METHADONE (DETOX) 5 MG PO ONE (10:00)
[2019-10-11] MEDS: NICOTINE 14 MG/24 HOURS TOPICAL PATCH TD SCH (10:08)
[2019-10-11] MEDS: PRENATAL VITAMINS W/ FOLIC ACID TABLET (FP) PO SCH (10:08)
[2019-10-11] MEDS: METHOCARBAMOL 500 MG TABLET PO PRN (10:11)
--- NOTE | 2019-10-11 14:25 | PN ---
BHS COWS - Scale Resting Pulse: 1= [place] 81-100 Sweatin= No chills or Flushing Restless Observation: 0= Sits Still Pupil Size: 1= Pupils >than Normal Bone or Joint Aches: 1= Mild Discomfort Runny Nose/ Eye Tearin= Nasal Congestion GI Upset > 30mins: 1= Stomach Cramp Tremor Observation of Outstretched Hands: 1= Tremor [place], Not Seen Yawning Observation: 0= None Anxiety or Irritability: 1=Feels Anxious/Irritable Goose Flesh Skin: 0=Smooth Skin COWS Score: 7 BHS Progress Note (SOAP) Subjective: 29 years old male admitted on 10/08/19 for opiate withdrawal sx management treating with methadone detox regiment less general body aches mild anxiety ate breakfast and lunch in room social with peers in day room discussing medication assisted treatment program and picking up narcan from pharmacy upon discharge Objective: 10/11/19 14:27 Vital Signs - 24 hr 10/10/19 10/10/19 10/11/19 16:34 20:30 06:13 Temperature 97.5 F L 97.5 F L 97.5 F L Pulse Rate 74 84 88 Respiratory 20 16 18 Rate Blood Pressure 115/67 120/84 98/51 L O2 Sat by Pulse 100 100 98 Oximetry (%) 10/11/19 10/11/19 08:29 12:36 Temperature 97.3 F L 97.5 F L Pulse Rate 69 81 Respiratory 18 16 Rate Blood Pressure 124/75 118/61 O2 Sat by Pulse 100 Oximetry (%) Laboratory Tests 10/08/19 10/09/19 10/09/19 12:50 08:15 08:15 WBC 4.4 RBC 4.38 Hgb 12.6 Hct 38.4 MCV 87.6 MCH 28.6 MCHC 32.7 RDW 14.2 Plt Count 179 MPV 9.8 Sodium Potassium Chloride Carbon Dioxide Anion Gap BUN Creatinine Est GFR (CKD-EPI)AfAm Est GFR (CKD-EPI)NonAf Random Glucose Calcium Total Bilirubin AST ALT Alkaline Phosphatase Total Protein Albumin Syphilis Serology Non-reactive COVID-19 (NEHA) Not detected 10/09/19 08:15 WBC RBC Hgb Hct MCV MCH MCHC RDW Plt Count MPV Sodium 142 Potassium 5.1 Chloride 108 H Carbon Dioxide 29 Anion Gap 5 L BUN 14.5 Creatinine 0.7 Est GFR (CKD-EPI)AfAm 145.74 Est GFR (CKD-EPI)NonAf 125.75 Random Glucose 89 Calcium 8.9 Total Bilirubin 0.5 AST 16 ALT 25 Alkaline Phosphatase 84 Total Protein 6.5 Albumin 3.6 Syphilis Serology COVID-19 (NEHA) lab noted Assessment: 10/11/19 14:28 opiate withdrawal Plan: methadone regiment
[2019-10-11] MEDS: QUEtiapine FUMARATE 200 MG TABLET PO SCH (21:52)
[2019-10-11] MEDS: MELATONIN 5 MG TABLETS PO SCH (21:53)
[2019-10-11] MEDS: THIAMINE HCL 100 MG TABLET (FP) PO SCH (21:53)
[2019-10-12] MEDS: hydrOXYzine PAMOATE 50 MG CAPSULE (FP) PO SCH ×4 (06:31→22:07)
[2019-10-12] MEDS: NICOTINE 14 MG/24 HOURS TOPICAL PATCH TD SCH (09:59)
[2019-10-12] MEDS: METHOCARBAMOL 500 MG TABLET PO PRN ×2 (10:00→18:51)
[2019-10-12] MEDS ORDERED: METHADONE HCL 10 MG TABLET (FOR DETOX USE ONLY) PO ONE (10:00)
[2019-10-12] MEDS: PRENATAL VITAMINS W/ FOLIC ACID TABLET (FP) PO SCH (10:01)
--- NOTE | 2019-10-12 10:03 | PN ---
BHS COWS - Scale Resting Pulse: 0= [place] 80 or Below Sweatin=Flushed/Facial Moisture Restless Observation: 0= Sits Still Pupil Size: 0= Normal to Room Light Bone or Joint Aches: 0= None Runny Nose/ Eye Tearin= Nasal Congestion GI Upset > 30mins: 0= None Tremor Observation of Outstretched Hands: 0= None Yawning Observation: 0= None Anxiety or Irritability: 1=Feels Anxious/Irritable Goose Flesh Skin: 0=Smooth Skin COWS Score: 4 BHS Progress Note (SOAP) Subjective: complaints of sweats, anxiety, nasal congestion Objective: 10/12/19 10:00 PE Gnl: WDWN, in no distress MS: nl mentation Gait: steady Coordination: nl Laboratory Tests 10/08/19 10/09/19 10/09/19 12:50 08:15 08:15 WBC 4.4 RBC 4.38 Hgb 12.6 Hct 38.4 MCV 87.6 MCH 28.6 MCHC 32.7 RDW 14.2 Plt Count 179 MPV 9.8 Sodium Potassium Chloride Carbon Dioxide Anion Gap BUN Creatinine Est GFR (CKD-EPI)AfAm Est GFR (CKD-EPI)NonAf Random Glucose Calcium Total Bilirubin AST ALT Alkaline Phosphatase Total Protein Albumin Syphilis Serology Non-reactive COVID-19 (NEHA) Not detected 10/09/19 08:15 WBC RBC Hgb Hct MCV MCH MCHC RDW Plt Count MPV Sodium 142 Potassium 5.1 Chloride 108 H Carbon Dioxide 29 Anion Gap 5 L BUN 14.5 Creatinine 0.7 Est GFR (CKD-EPI)AfAm 145.74 Est GFR (CKD-EPI)NonAf 125.75 Random Glucose 89 Calcium 8.9 Total Bilirubin 0.5 AST 16 ALT 25 Alkaline Phosphatase 84 Total Protein 6.5 Albumin 3.6 Syphilis Serology COVID-19 (NEHA) Active Medications Generic Name Dose Route Start Last Admin Trade Name Freq PRN Reason Stop Dose Admin Acetaminophen 650 mg 10/08/19 10:16 10/09/19 13:10 Tylenol - PO 650 mg Q6H PRN Administration PAIN LEVEL 4 - 6 Acetaminophen 650 mg 10/08/19 10:16 Tylenol - PO Q6H PRN FEVER Al Hydroxide/Mg Hydroxide 30 ml 10/08/19 10:16 Mylanta Oral Suspension - PO Q6H PRN DYSPEPSIA Bismuth Subsalicylate 524 mg 10/08/19 10:16 Pepto-Bismol - PO Q1H PRN DIARRHEA Eucalyptus/Menthol/Phenol/Sorbitol 1 each 10/08/19 10:16 Cepastat Lozenge - MM 10/14/19 10:16 Q4H PRN SORE THROAT Hydroxyzine Pamoate 50 mg 10/10/19 11:00 10/12/19 06:31 Vistaril - PO Not Given Q6H NELLIE Ibuprofen 400 mg 10/08/19 10:16 Motrin - PO Q6H PRN PAIN LEVEL 1 - 3 Magnesium Citrate 300 ml 10/08/19 10:16 Citroma - PO Q48H PRN CONSTIPATION Magnesium Hydroxide 30 ml 10/08/19 10:16 Milk Of Magnesia - PO PRN PRN CONSTIPATION Melatonin 5 mg 10/08/19 22:00 10/11/19 21:53 Melatonin PO Not Given HS NELLIE Methadone HCl 5 mg 10/13/19 06:00 Dolophine - PO 10/13/19 06:01 ONCE@0600 ONE Methadone HCl 10 mg 10/12/19 10:00 Dolophine - PO 10/12/19 10:01 ONCE ONE Methocarbamol 500 mg 10/08/19 10:16 10/11/19 10:11 Robaxin - PO 10/14/19 10:16 500 mg Q6H PRN Administration MUSCLE SPASMS Nicotine 14 mg 10/09/19 13:45 10/11/19 10:08 Nicoderm Patch - TD 14 mg DAILY NELLIE Administration Nicotine Polacrilex 2 mg 10/08/19 10:16 Nicorette Gum - BUC Q2H PRN NICOTINE REPLACEMENT RX Multivit/Folic Acid/Iron 1 tab 10/08/19 11:00 10/11/19 10:08 Vitamins (Sjr) - PO 1 tab DAILY NELLIE Administration Quetiapine Fumarate 200 mg 10/10/19 22:00 10/11/19 21:52 Seroquel - PO 200 mg HS NELLIE Administration Thiamine HCl 100 mg 10/08/19 22:00 10/11/19 21:53 Vitamin B1 - PO 100 mg HS NELLIE Administration Vital Signs Temperature 97.5 F L 10/12/19 08:41 Pulse Rate 70 10/12/19 08:41 Respiratory Rate 18 10/12/19 08:41 Blood Pressure 118/67 10/12/19 08:41 O2 Sat by Pulse Oximetry (%) 98 10/12/19 08:41 Assessment: 10/12/19 10:01 Imp 1. Opioid use disorder 2. Nicotine dependence 3. Hx of cannabis, amphetamine use Plan: 1. Methadone detox, planned finish is tomorrow, will go to [facility] 2. Nicoderm patch 3. Will check with Psychiatry to ensure [facility].
--- NOTE | 2019-10-12 13:06 | PN ---
Jose Progress Note Note: Psychiatry Attending's note : Patient will be discharged tomorrow. To [facility]. Script sent to [facility]. For seroquel 200 mg po hs (30 tablets).
[2019-10-12] MEDS ORDERED: hydrOXYzine PAMOATE 50 MG CAPSULE (FP) PO ONE (15:23)
[2019-10-12] MEDS: QUEtiapine FUMARATE 200 MG TABLET PO SCH (22:06)
[2019-10-12] MEDS: MELATONIN 5 MG TABLETS PO SCH (22:07)
[2019-10-12] MEDS: THIAMINE HCL 100 MG TABLET (FP) PO SCH (22:07)
[2019-10-13] MEDS ORDERED: METHADONE HCL 5 MG TABLET (FOR DETOX USE ONLY) PO ONE (06:00)
[2019-10-13] MEDS: hydrOXYzine PAMOATE 50 MG CAPSULE (FP) PO SCH ×2 (06:19→10:10)
[2019-10-13 07:08] VITALS: PULSE 18
[2019-10-13 08:59] VITALS: BP 122/70; TEMP 97.3
[2019-10-13] MEDS: PRENATAL VITAMINS W/ FOLIC ACID TABLET (FP) PO SCH (09:07)
[2019-10-13] MEDS: NICOTINE 14 MG/24 HOURS TOPICAL PATCH TD SCH (09:07)
--- NOTE | 2019-10-13 12:01 | DS ---
[facility] Detox Discharge Summary Admission Date: 10/08/19 Discharge Date: 10/13/19 - History Present History: Opioid Dependence Additional Comments: Pt is medically cleared and discharged today. Pt completed the detox protocol. Pt is encouraged to follow-up with an outpatient CD and also to follow-up with his pmd which he verbalized understanding, Pt is AOX3, in no acute respiratory distress, Full ROM, and ambulatory. Pertinent Past History: h/o heroin use disorder. - Physical Exam Results Vital Signs: Vital Signs Temperature 97.3 F L 10/13/19 08:27 Pulse Rate 18 L 10/13/19 08:27 Respiratory Rate 100 H 10/13/19 08:27 Blood Pressure 122/70 10/13/19 08:27 O2 Sat by Pulse Oximetry (%) 100 10/13/19 05:29 Vital Signs 10/13/19 10/13/19 05:29 08:27 Temperature 60 F L 97.3 F L Pulse Rate 18 L 18 L Respiratory 105 H 100 H Rate Blood Pressure 105/67 122/70 O2 Sat by Pulse 100 Oximetry (%) Laboratory Last Values WBC 4.4 K/mm3 (4.0-10.0) 10/09/19 08:15 RBC 4.38 M/mm3 (4.00-5.60) 10/09/19 08:15 Hgb 12.6 GM/dL (11.7-16.9) 10/09/19 08:15 Hct 38.4 % (35.4-49) 10/09/19 08:15 MCV 87.6 fl (80-96) 10/09/19 08:15 MCH 28.6 pg (25.7-33.7) 10/09/19 08:15 MCHC 32.7 g/dl (32.0-35.9) 10/09/19 08:15 RDW 14.2 % (11.9-15.9) 10/09/19 08:15 Plt Count 179 K/MM3 (134-434) 10/09/19 08:15 MPV 9.8 fl (7.5-11.1) 10/09/19 08:15 Sodium 142 mmol/L (136-145) 10/09/19 08:15 Potassium 5.1 mmol/L (3.5-5.1) 10/09/19 08:15 Chloride 108 mmol/L (98-107) H 10/09/19 08:15 Carbon Dioxide 29 mmol/L (21-32) 10/09/19 08:15 Anion Gap 5 MMOL/L (8-16) L 10/09/19 08:15 BUN 14.5 mg/dL (7-18) 10/09/19 08:15 Creatinine 0.7 mg/dL (0.55-1.3) 10/09/19 08:15 Est GFR (CKD-EPI)AfAm 145.74 10/09/19 08:15 Est GFR (CKD-EPI)NonAf 125.75 10/09/19 08:15 Random Glucose 89 mg/dL (74-106) 10/09/19 08:15 Calcium 8.9 mg/dL (8.5-10.1) 10/09/19 08:15 Total Bilirubin 0.5 mg/dL (0.2-1) 10/09/19 08:15 AST 16 U/L (15-37) 10/09/19 08:15 ALT 25 U/L (13-61) 10/09/19 08:15 Alkaline Phosphatase 84 U/L (45-117) 10/09/19 08:15 Total Protein 6.5 g/dl (6.4-8.2) 10/09/19 08:15 Albumin 3.6 g/dl (3.4-5.0) 10/09/19 08:15 Syphilis Serology Non-reactive (NONREACTIVE) 10/09/19 08:15 COVID-19 ([facility]HA) Not detected (Not Detected) 10/08/19 12:50 Labs noted. Pertinent Admission Physical Exam Findings: withdrawal symptoms. - Treatment Hospital Course: Detox Protocol Followed, Detoxed Safely, Responded well, Discharged Condition Good - Medication Discharge Medications: Ambulatory Orders Naloxone HCl [Narcan] 4 mg NS ASDIR PRN #1 spray 10/11/19 Quetiapine Fumarate [Seroquel -] 200 mg PO HS #30 tab 10/12/19 - Diagnosis (1) Opioid dependence with withdrawal Status: Acute (2) Heroin dependence Status: Chronic (3) Nicotine dependence Status: Chronic Qualifiers: Nicotine product type: cigarettes Substance use status: uncomplicated Qualified Code(s): F17.210 - Nicotine dependence, cigarettes, uncomplicated - AMA Did Patient Leave Against Medical Advice: No
== END 2019-10-13 09:25 | disposition home or self-care (01) | DRG 773 ==
LOC: YASAS 08:41 → Y3N 10:04
PROVIDERS: ADMIT Allergy & Immunology; ATTEND Allergy & Immunology
PROC: HZ2ZZZZ Detoxification Services for Substance Abuse Treatment (ICD-10-PCS; principal; 2019-10-08)
DX: F11.23 Opioid dependence with withdrawal (principal); F17.210 Nicotine dependence, cigarettes, uncomplicated; F19.280 Other psychoactive substance dependence with psychoactive substance-induced anxiety disorder; F19.282 Other psychoactive substance dependence with psychoactive substance-induced sleep disorder; F19.24 Other psychoactive substance dependence with psychoactive substance-induced mood disorder; F41.9 Anxiety disorder, unspecified; F41.0 Panic disorder [episodic paroxysmal anxiety]; F32.9 Major depressive disorder, single episode, unspecified; F90.9 Attention-deficit hyperactivity disorder, unspecified type; G47.00 Insomnia, unspecified
CPT/HCPCS: 36415; 80053; 85027; 86780; J0735; U0003

== ENCOUNTER 2019-11-05 09:16 | Inpatient (IN) | payer OTHER ==
--- NOTE | 2019-11-05 09:23 | BHS.RME ---
Substance Use & Tx History - Substance Use History Heroin Substance amount: up to 4 bundles Frequency of use: Daily Substance route: Inhalation (ex: sniffing or snorting), Injection (ex: intravenous or skin popping) Date of Last Use: 10/07/19 (First use age 19. OD x 1: years ago. Has Narcan at home) Cocaine-Crack Substance amount: one gram Frequency of use: Daily Substance route: Smoking Date of Last Use: 10/07/19 (First use age 19 y) Nicotine Substance amount: 1-2 packs Frequency of use: Daily Substance route: Smoking Date of Last Use: 11/05/19 (First use age 19 y) - Last Treatment Date of last treatment: October 06 Treatment type: Substance Use Disorder (MACY) Where was last treatment: Detox Physical/Psych/Mental Status - Behavior General Behavior: Increased activity (restlessness, agitation) Eye Contact: Normal - Cooperativeness Cooperativeness: Cooperative - Thinking Thought Processes: Tight Thought content: Future oriented - Physical Health Problems Is patient presently having any pain?: No Does patient presently have any injuries (include location): No Does patient currently have a fever: No COWS - Scale Resting Pulse: 2= MA 101-120 Sweatin= No chills or Flushing Restless Observation: 0= Sits Still Pupil Size: 0= Normal to Room Light Bone or Joint Aches: 0= None Runny Nose/ Eye Tearin= None GI Upset > 30mins: 0= None Tremor Observation: 0= None Yawning Observation: 0= None Anxiety or Irritability: 1=Feels Anxious/Irritable Goose Flesh Skin: 0=Smooth Skin COWS Score: 3
--- NOTE | 2019-11-05 09:29 | HP ---
COWS - Scale Resting Pulse: 2= MO 101-120 Sweatin= No chills or Flushing Restless Observation: 0= Sits Still Pupil Size: 0= Normal to Room Light Bone or Joint Aches: 0= None Runny Nose/ Eye Tearin= None GI Upset > 30mins: 0= None Tremor Observation: 0= None Yawning Observation: 0= None Anxiety or Irritability: 1=Feels Anxious/Irritable Goose Flesh Skin: 0=Smooth Skin COWS Score: 3 CIWA Score - Admission Criteria OASAS Guidelines: Admission for Medically Managed Detox: Requires at least one of the followin. CIWA greater than 12 2. Seizures within the past 24 hours 3. Delirium tremens within the past 24 hours 4. Hallucinations within the past 24 hours 5. Acute intervention needed for co occurring medical disorder 6. Acute intervention needed for co occurring psychiatric disorder 7. Severe withdrawal that cannot be handled at a lower level of care (continued vomiting, continued diarrhea, abnormal vital signs) requiring intravenous medication and/or fluids 8. Admitting History and Physical - Admission Chief Complaint: Mr. Michael presents to [facility] requesting admission to rehab. History of Present Illness: Mr. Michael presents to [facility] requesting admission to rehab. He completed detox here in September and then went to [facility] where he was started on Suboxone. He is currently on 16 mg/day of Suboxone Labs: November 02, 2019: negative COVID swab and antibodies PMH:none PSH: none Psych: ADHD, bipolar 1 SOC: homeless Legal: none Substance Use History Heroin Substance amount: up to 4 bundles Frequency of use: Daily Substance route: Inhalation (ex: sniffing or snorting), Injection (ex: intravenous or skin popping) Date of Last Use: 10/07/19 (First use age 19. OD x 1: years ago. Has Narcan at home) Cocaine-Crack Substance amount: one gram Frequency of use: Daily Substance route: Smoking Date of Last Use: 11/03/19 (First use age 19 y) Nicotine Substance amount: 1-2 packs Frequency of use: Daily Substance route: Smoking Date of Last Use: 11/05/19 (First use age 19 y) - Last Treatment Date of last treatment: October 06 Treatment type: Substance Use Disorder (MACY) Where was last treatment: Detox Patient Name: Ney Michael Date: 1990 Address: [address] [place] [address] Sex: Male Rx Written Rx Dispensed Drug Quantity Days Supply Prescriber Name Payment Method Dispenser 10/18/2019 10/18/2019 buprenorphine-naloxone 4-1 mg sl film 60 30 Barbara Ortiz Medicaid [facility] History Source: Patient Limitations to Obtaining History: No Limitations - Past Medical History Psych: Yes: Anxiety, Depression - Past Surgical History Past Surgical History: Yes: None - Smoking History Smoking history: Current every day smoker Have you smoked in the past 12 months: Yes Aproximately how many cigarettes per day: 20 - Alcohol/Substance Use History of Substance Use: reports: Cocaine, Heroin, Marijuana Date of Last Use: 10/07/19 - Social History ADL: Independent Occupation: unemployed, construction carpentry History of Recent Travel: No Admission ROS [facility] - [facility] Allergies/Adverse Reactions: Allergies Allergy/AdvReac Type Severity Reaction Status Date / Time No Known Allergies Allergy Verified 11/05/19 10:54 Exam Limitations: No Limitations - Ebola screening Have you traveled outside of the country in the last 21 days: No Have you been sick,other than usual withdrawal symptoms: No Do you have a fever: No - Review of Systems Constitutional: No Symptoms Reported EENT: reports: No Symptoms Reported Respiratory: reports: No Symptoms reported Cardiac: reports: No Symptoms Reported GI: reports: No Symptoms Reported : reports: No Symptoms Reported Musculoskeletal: reports: No Symptoms Reported Integumentary: reports: No Symptoms Reported Neuro: reports: No Symptoms reported Endocrine: reports: No Symptoms Reported Hematology: reports: No Symptoms Reported Psychiatric: reports: Anxious Patient History - Patient Medical History Hx Asthma: No Hx Chronic Obstructive Pulmonary Disease (COPD): No Hx Cardiac Disorders: No Hx Hypertension: No Hx Seizures: No Hx Diabetes: No Hx Gastrointestinal Disorders: No Hx Genitourinary Disorders: No Hx Sexually Transmitted Disorders: No Hx Renal Disease (ESRD): No Hx Depression: No Hx Suicide Attempt: No Hx Schizophrenia: No - Patient Surgical History Past Surgical History: No Hx Neurologic Surgery: No Hx Cataract Extraction: No Hx Cardiac Surgery: No Hx Lung Surgery: No Hx Breast Surgery: No Hx Breast Biopsy: No Hx Abdominal Surgery: No Hx Appendectomy: No Hx Cholecystectomy: No Hx Genitourinary Surgery: No Hx Section: No Hx Orthopedic Surgery: No Anesthesia Reaction: No - PPD History Date: 10/06/19 Results: neg - Smoking Cessation Smoking history: Current every day smoker Have you smoked in the past 12 months: Yes Aproximately how many cigarettes per day: 20 Cigars Per Day: 0 Hx Chewing Tobacco Use: No Initiated information on smoking cessation: Yes 'Breaking Loose' booklet given: 11/05/19 - Substances abused Cocaine Substance route: Smoking Frequency: Daily Amount used: 1gram Age of first use: 19 Date of last use: 10/07/19 Heroin Substance route: Injection Frequency: Daily Amount used: 4 bundles Age of first use: 19 Date of last use: 10/07/19 Admission Physical Exam [facility] Physical General Appearance: Yes: No Apparent Distress, Nourished, Appropriately Dressed HEENTM: Yes: EOMI, Hearing grossly Normal, Normocephalic, Normal Voice Respiratory: Yes: Lungs Clear, Normal Breath Sounds, No Respiratory Distress, No Accessory Muscle Use Neck: Yes: Within Normal Limits, Supple Breast: Yes: Breast Exam Deferred Cardiology: Yes: Regular Rhythm, Regular Rate, S1, S2 Abdominal: Yes: Normal Bowel Sounds, Non Tender, Flat, Soft Back: Yes: Normal Inspection Musculoskeletal: Yes: full range of Motion, Gait Steady Extremities: Yes: Normal Inspection, Non-Tender Neurological: Yes: Fully Oriented, Alert, Normal Mood/Affect, Normal Response Integumentary: Yes: Normal Color, Dry, Warm - Diagnostic (1) Opioid use disorder, mild, on maintenance therapy Current Visit: Yes Status: Acute (2) Cocaine abuse Current Visit: Yes Status: Acute (3) ADHD Current Visit: Yes Status: Chronic (4) Bipolar 1 disorder Current Visit: Yes Status: Chronic Cleared for Admission [facility] - Detox or Rehab [facility] Level of Care: Medically Supervised Breathalyzer - Breathalyzer Breathalyzer: 0 Urine Drug Screen - Test Device Lot number: [id number] Expiration date: 10/29/21 - Control Is test valid?: Yes - Results Drug screen NEGATIVE: No Urine drug screen results: DALIA-Cocaine, BUP-Suboxone Inpatient Rehab Admission - Rehab Decision to Admit Inpatient rehab admission?: Yes - Initial Determination Are CD services needed?: Yes Free of communicable disease: Yes Not in need of hospitalization: Yes - Rehab Admission Criteria Previous failed treatment: Yes Poor recovery environment: Yes Comorbidities: Yes Lacks judgement: Yes Patient is meeting Inpatient Rehab admission criteria:: Yes
[2019-11-05] MEDS ORDERED: MAGNESIUM HYDROX 2400MG/30ML ORAL SUSPENSION 30 ML CUP PO PRN (11:04)
[2019-11-05] MEDS ORDERED: P-EPHED 60MG/TRIPROLIDI 2.5MG TABLET PO PRN (11:04)
[2019-11-05] MEDS ORDERED: ACETAMINOPHEN 325 MG TABLET (FP) PO PRN (11:04)
[2019-11-05] MEDS ORDERED: LOPERAMIDE HCL 2 MG CAPSULE PO PRN (11:04)
[2019-11-05] MEDS ORDERED: MAGNESIUM CITRATE 300 ML BOTTLE PO PRN (11:04)
[2019-11-05] MEDS ORDERED: MAG HYDROX/AL HYDROX/SIMETH 30 ML UNIT-DOSE CUP PO PRN (11:04)
[2019-11-05] MEDS ORDERED: IBUPROFEN 400 MG TABLET (FP) PO PRN (11:04)
[2019-11-05] MEDS ORDERED: guaiFENesin 200 MG/10 ML 10 ML UNIT-DOSE CUPS PO PRN (11:04)
[2019-11-05 11:05] VITALS: BMI 27.6
--- NOTE | 2019-11-05 11:38 | CONSULT ---
[facility] Psychiatric Consult - Data Date of interview: 11/05/19 Admission source: Self-referred Identifying data: Mr Michael is a 29 years old single male, unemployed with no source of income, homeless admitted on 11/05/19 for inpatient rehabilitation treatment for opioid and cocaine Substance Abuse History: Reports history of heroin and cocaine use. Refer to addiction counselor's summary for further information Medical History: Unremakable. Smokes cigarettes 1-2 ppd Psychiatric History: Patient is known for two previous admissions to this facility. He reports that his first psychiatric contact occured in grade school when he was diagnosed with ADHD and prescribed Adderall. He said that he took Adderal till age 16 when he was diagnosed with Panic Disorder and prescribed Prozac and Klonopin. He currently receives outpatient psychiatric treatment at [facility] in [facility] and he is prescribed Strattera 40 mg/day and Seroquel 50 mg/bid prn & 200 mg/hs. Denies psychiatric hospitalization or suicidal attempt. At present, denies experiencing anxiety symptoms, S/H ideations. However, reports sleeping poorly Physical/Sexual Abuse/Trauma History: Denies history of abuse as a child or DV relationship as an adult Mental Status Exam - Mental Status Exam Alert and Oriented to: Time, Place, Person Cognitive Function: Fair Patient Appearance: Well Groomed Mood: Hopeful, Euthymic Patient Behavior: Cooperative Speech Pattern: Clear Voice Loudness: Normal Thought Process: Intact, Goal Oriented Thought Disorder: Not Present Hallucinations: Denies Suicidal Ideation: Denies Homicidal Ideation: Denies Insight/Judgement: Poor Sleep: Poorly Appetite: Good Muscle strength/Tone: Normal Gait/Station: Normal Psychiatric Findings - Problem List ([place] 1, 2,3) (1) ADHD Current Visit: Yes Status: Chronic (2) Anxiety disorder Current Visit: No Status: Chronic (3) Panic disorder Current Visit: No Status: Ruled-out (4) Substance-induced sleep disorder Current Visit: No Status: Acute (5) Opioid dependence with withdrawal Current Visit: No Status: Acute (6) Cocaine dependence Current Visit: Yes Status: Acute (7) Nicotine dependence Current Visit: No Status: Chronic Qualifiers: Nicotine product type: cigarettes Substance use status: uncomplicated Qualified Code(s): F17.210 - Nicotine dependence, cigarettes, uncomplicated - Initial Treatment Plan Initial Treatment Plan: 1) Continue Strattera 40 mg po daily and Seroquel 50 mg/bid prn for anxiety & 200 mg HS. 2) Start Vistaril 50 mg po Q 4hrs prn for anxiety. 3) Continue inpatient rehabilitation
[2019-11-05] MEDS ORDERED: hydrOXYzine PAMOATE 25 MG CAPSULE (FP) PO SCH (14:00)
[2019-11-05] MEDS ORDERED: QUEtiapine FUMARATE 50 MG TABLET PO PRN (14:06)
[2019-11-05 14:15] LABS: HEMATOCRIT 40.2 % (35.4-49); HEMOGLOBIN 13.3 GM/dL (11.7-16.9); MCH 29.4 pg (25.7-33.7); MCHC 33.1 g/dl (32.0-35.9); MEAN CELL VOLUME 88.7 fl (80-96); MEAN PLT VOLUME 9.5 fl (7.5-11.1); PLATELET COUNT 222 K/MM3 (134-434); RBC 4.53 M/mm3 (4.00-5.60); WHITE BLOOD COUNT 5.3 K/mm3 (4.0-10.0)
[2019-11-05 14:30] LABS: BILIRUBIN,TOTAL 0.3 mg/dL (0.2-1); BLOOD UREA NITROGEN 14.6 mg/dL (7-18); CALCIUM 9.4 mg/dL (8.5-10.1); CREATININE 0.9 mg/dL (0.55-1.3); POTASSIUM 4.4 mmol/L (3.5-5.1); TOT PROT 7.2 g/dl (6.4-8.2)
[2019-11-05] MEDS: NICOTINE POLACRILEX 2 MG GUM BUC PRN ×3 (14:53→21:04)
[2019-11-05] MEDS: NICOTINE 21 MG/24 HOURS TOPICAL PATCH TD SCH (14:53)
[2019-11-05] MEDS: hydrOXYzine PAMOATE 50 MG CAPSULE (FP) PO PRN (14:53)
[2019-11-05] MEDS: BUPRENORPHINE/NALOXONE 8 MG/2 MG FILM PACKET SL SCH (17:50)
[2019-11-05] MEDS: QUEtiapine FUMARATE 200 MG TABLET PO SCH (21:03)
[2019-11-05] MEDS: THIAMINE HCL 100 MG TABLET (FP) PO SCH (21:03)
[2019-11-05] MEDS: MELATONIN 5 MG TABLETS PO SCH (21:04)
[2019-11-05 21:43] LABS: URINE APPEARANCE CLEAR; URINE BILIRUBIN NEGATIVE (NEGATIVE); URINE COLOR YELLOW; URINE GLUCOSE (UA) NEGATIVE (NEGATIVE); URINE KETONE NEGATIVE (NEGATIVE); URINE LEUK ESTERASE NEGATIVE (NEGATIVE); URINE NITRITE NEGATIVE (NEGATIVE); URINE PROTEIN NEGATIVE (NEGATIVE)
[2019-11-05] MEDS ORDERED: BUPRENORPHINE/NALOXONE 8 MG/2 MG FILM PACKET SL SCH (22:00)
[2019-11-06] MEDS: BUPRENORPHINE/NALOXONE 8 MG/2 MG FILM PACKET SL SCH ×2 (06:45→17:37)
[2019-11-06] MEDS: NICOTINE POLACRILEX 2 MG GUM BUC PRN ×5 (06:53→21:31)
[2019-11-06] MEDS: ATOMOXETINE HCL 40 MG CAPSULE PO SCH (10:20)
[2019-11-06] MEDS: hydrOXYzine PAMOATE 50 MG CAPSULE (FP) PO PRN ×3 (10:20→21:31)
[2019-11-06] MEDS: PRENATAL VITAMINS W/ FOLIC ACID TABLET (FP) PO SCH (10:20)
[2019-11-06] MEDS: NICOTINE 21 MG/24 HOURS TOPICAL PATCH TD SCH (10:20)
[2019-11-06] MEDS: MELATONIN 5 MG TABLETS PO SCH (21:30)
[2019-11-06] MEDS: QUEtiapine FUMARATE 200 MG TABLET PO SCH (21:30)
[2019-11-06] MEDS: THIAMINE HCL 100 MG TABLET (FP) PO SCH (21:30)
[2019-11-07] MEDS: BUPRENORPHINE/NALOXONE 8 MG/2 MG FILM PACKET SL SCH (06:03)
[2019-11-07 07:07] VITALS: BP 119/65; PULSE 67; TEMP 97.3
--- NOTE | 2019-11-07 10:11 | DS ---
[facility] Rehab Discharge Summary - [facility] Rehab Discharge Summary Admission Date: 11/05/19 Discharge Date: 11/07/19 - History Present History: Cocaine dependence, Opioid dependence Pertinent Past History: Mr. Michael presented to [facility] requesting admission to rehab. He completed detox here in September and then went to [facility] where he was started on Suboxone. He is currently on 16 mg/day of Suboxone Labs: November 02, 2019: negative COVID swab and antibodies PMH:none PSH: none Psych: ADHD, bipolar 1 SOC: homeless Legal: none - Discharge Physical Exam Vital Signs: Vital Signs Temperature 97.3 F L 11/07/19 06:05 Pulse Rate 67 11/07/19 06:05 Respiratory Rate 18 11/07/19 06:05 Blood Pressure 119/65 11/07/19 06:05 O2 Sat by Pulse Oximetry (%) 99 11/07/19 06:05 Pertinent Admission Physical Exam Findings: Physical General Appearance: No Apparent Distress, HEENTM: EOMI, Normocephalic, Respiratory: No Respiratory Distress, No Accessory Muscle Use Neck: Supple Abdominal: +Bowel Sounds, Non Tender, Flat, Soft Musculoskeletal: full range of Motion, Gait Steady Neuro: No cognitive deficits noted - Treatment Discharge Condition: Outpatient referral accepted (Patient is going to [facility]. Medically stable for discharge.) Hospital Course: patient attended groups, had 1:1 with his counselor, was seen by the psychiatric service. He was adherent to his medication regimen and treatment plan. He did not have any acute or urgent medical problems while in rehab - Medication Discharge Medications: Ambulatory Orders Atomoxetine HCl [Strattera -] 40 mg PO DAILY 11/05/19 Quetiapine Fumarate [Seroquel -] 50 mg PO PRN 11/05/19 Atomoxetine HCl [Strattera -] 40 mg PO DAILY #30 capsule 11/07/19 Buprenorphine/Naloxone [Suboxone 8Mg/2Mg Sl Film -] 1 each SL BID 7 Days #14 film NS MDD 2 11/07/19 Naloxone HCl [Narcan] 4 mg NS ASDIR PRN #1 spray 11/07/19 Quetiapine Fumarate [Seroquel -] 50 mg PO BID@1000,1700 PRN #60 tablet 11/07/19 Quetiapine Fumarate [Seroquel -] 200 mg PO HS #30 tab 11/07/19 - Medication-Assisted Treatment (MAT) Medication-Assisted Treatment (MAT): Yes Medication Prescribed: Buprenorphine (Patient will go to [facility], then follow up with [facility].) - Discharge Instructions Diet, activity, other medical instructions: Diet: as tolerated Activity: as tolerated Other medical instructions: Please follow up with aftercare referral. - Diagnosis (1) Cocaine dependence Current Visit: Yes Status: Chronic (2) Opioid use disorder, mild, on maintenance therapy Current Visit: Yes Status: Chronic - Follow-up Referral Minutes to complete discharge: 15 - AMA Did Patient Leave Against Medical Advice: No
--- NOTE | 2019-11-07 10:16 | PN ---
BHS Progress Note Note: Pa
[2019-11-07] MEDS: hydrOXYzine PAMOATE 50 MG CAPSULE (FP) PO PRN (10:40)
[2019-11-07] MEDS: PRENATAL VITAMINS W/ FOLIC ACID TABLET (FP) PO SCH (10:40)
[2019-11-07] MEDS: NICOTINE 21 MG/24 HOURS TOPICAL PATCH TD SCH (10:40)
[2019-11-07] MEDS: ATOMOXETINE HCL 40 MG CAPSULE PO SCH (10:41)
[2019-11-07] MEDS: NICOTINE POLACRILEX 2 MG GUM BUC PRN (11:37)
== END 2019-11-07 12:54 | disposition home or self-care (01) | DRG 772 ==
LOC: YASAS 09:16 → Y3W 11:21
PROVIDERS: ADMIT Allergy & Immunology; ATTEND Allergy & Immunology
PROC: HZ42ZZZ Group Counseling for Substance Abuse Treatment, Cognitive-Behavioral (ICD-10-PCS; principal; 2019-11-05)
DX: F11.20 Opioid dependence, uncomplicated (principal); F14.20 Cocaine dependence, uncomplicated; F17.210 Nicotine dependence, cigarettes, uncomplicated; F90.9 Attention-deficit hyperactivity disorder, unspecified type; F41.9 Anxiety disorder, unspecified; F41.0 Panic disorder [episodic paroxysmal anxiety]; F19.282 Other psychoactive substance dependence with psychoactive substance-induced sleep disorder; F31.89 Other bipolar disorder
CPT/HCPCS: 36415; 80053; 81003; 85027; 86780

== ENCOUNTER 2019-11-23 16:24 | Inpatient (IN) | payer OTHER ==
--- NOTE | 2019-11-23 18:19 | HP ---
<Jamey Ybarra - Last Filed: 11/23/19 18:28> CIWA Score Nausea/Vomitin-Int. Nausea w/Dry Heave Muscle Tremors: 3 Agitation: 1-Slight > Activity Paroxysmal Sweats: 2 Orientation: 0-Oriented Tacttile Disturbances: 0-None Auditory Disturbances: 0-None Visual Disturbances: 0-None Headache: 3-Moderate - Admission Criteria OASAS Guidelines: Admission for Medically Managed Detox: Requires at least one of the followin. CIWA greater than 12 2. Seizures within the past 24 hours 3. Delirium tremens within the past 24 hours 4. Hallucinations within the past 24 hours 5. Acute intervention needed for co occurring medical disorder 6. Acute intervention needed for co occurring psychiatric disorder 7. Severe withdrawal that cannot be handled at a lower level of care (continued vomiting, continued diarrhea, abnormal vital signs) requiring intravenous medication and/or fluids 8. Admitting History and Physical - Admission Chief Complaint: Detox History of Present Illness: Patient is a 29 y.o. M presenting to [facility] for detox. Pt substance abuse consist of 2-3 pints of vodka no seizures last blackout 3 days ago, smokes 1g crack a day. Patient states he is on suboxone. - Past Medical History [employer]: No: Seizure Cardiovascular: No: HTN, Hyperlipdemia Gastrointestinal: No: GI Bleed Hepatobiliary: No: Hepatitis A, Hepatitis B, Hepatitis C Psych: Yes: Anxiety, Depression - Past Surgical History Past Surgical History: Yes: None - Smoking History Smoking history: Current every day smoker Have you smoked in the past 12 months: Yes Aproximately how many cigarettes per day: 20 - Alcohol/Substance Use History of Substance Use: reports: Cocaine, Heroin, Marijuana Date of Last Use: 10/07/19 - Social History ADL: Independent Occupation: unemployed, construction carpentry History of Recent Travel: No Admission ROS [facility] Allergies/Adverse Reactions: Allergies Allergy/AdvReac Type Severity Reaction Status Date / Time No Known Allergies Allergy Verified 11/23/19 20:41 - Ebola screening Have you traveled outside of the country in the last 21 days: No Have you had contact with anyone from an Ebola affected area: No Have you been sick,other than usual withdrawal symptoms: No Do you have a fever: No - Review of Systems Constitutional: No Symptoms Reported EENT: denies: Blurred Vision, Double Vision Respiratory: denies: Cough, Shortness of Breath Cardiac: denies: Chest Pain, Lightheadedness GI: reports: Nausea, Vomiting. denies: Constipated, Diarrhea Musculoskeletal: reports: Muscle Weakness Neuro: reports: Headache. denies: Dizziness Psychiatric: reports: No Sypmtoms Reported, Judgement Intact, Mood/Affect Appropiate, Orientated x3 Patient History - Patient Medical History Hx Asthma: No Hx Chronic Obstructive Pulmonary Disease (COPD): No Hx Cardiac Disorders: No Hx Hypertension: No Hx Seizures: No Hx Diabetes: No Hx Gastrointestinal Disorders: No Hx Genitourinary Disorders: No Hx Sexually Transmitted Disorders: No Hx Renal Disease (ESRD): No Hx Depression: No Hx Suicide Attempt: No Hx Schizophrenia: No - Patient Surgical History Past Surgical History: No Hx Neurologic Surgery: No Hx Cataract Extraction: No Hx Cardiac Surgery: No Hx Lung Surgery: No Hx Breast Surgery: No Hx Breast Biopsy: No Hx Abdominal Surgery: No Hx Appendectomy: No Hx Cholecystectomy: No Hx Genitourinary Surgery: No Hx Section: No Hx Orthopedic Surgery: No Anesthesia Reaction: No - PPD History Date: 10/06/19 Results: neg - Smoking Cessation Smoking history: Current every day smoker Have you smoked in the past 12 months: Yes Aproximately how many cigarettes per day: 20 Cigars Per Day: 0 Hx Chewing Tobacco Use: No Initiated information on smoking cessation: Yes 'Breaking Loose' booklet given: 11/23/19 Admission Physical Exam [facility] - Vital Signs Vital Signs: Vital Signs - 24 hr 11/23/19 17:34 Temperature 98.2 F Pulse Rate 85 Respiratory 18 Rate Blood Pressure 117/66 - Physical General Appearance: Yes: Within Normal Limits, No Apparent Distress, Nourished, Appropriately Dressed Respiratory: Yes: Within Normal Limits, Lungs Clear, Normal Breath Sounds, No Respiratory Distress, No Accessory Muscle Use Cardiology: Yes: Within Normal Limits, Regular Rhythm, Regular Rate Extremities: Yes: Normal Inspection, Non-Tender Neurological: Yes: Within Normal Limits, Fully Oriented, Alert, Normal Response - Diagnostic (1) Cocaine abuse Current Visit: No Status: Acute (2) Opioid use disorder Current Visit: No Status: Acute (3) Substance-induced anxiety disorder Current Visit: No Status: Acute (4) Anxiety disorder Current Visit: No Status: Chronic (5) Cocaine dependence Current Visit: No Status: Chronic Cleared for Admission [facility] - Detox or Rehab [facility] Level of Care: Medically Managed Detox Regimen/Protocol: Librium Breathalyzer - Breathalyzer Breathalyzer: 0 Vital Signs - Vital Signs Vital signs refused: No Temperature: 98.2 F Pulse Rate: 85 Respiratory Rate: 18 Blood Pressure: 117/66 - Height Height: 5 ft 6 in - Weight Weight: 374 lb 12.573 oz - BMI Body Mass Index (BMI): 60.5 Urine Drug Screen - Test Device Lot number: [id number] Expiration date: 07/03/21 - Control Is test valid?: Yes - Results Drug screen NEGATIVE: No Urine drug screen results: DALIA-Cocaine, BUP-Suboxone Inpatient Rehab Admission - Rehab Decision to Admit Inpatient rehab admission?: No <Rosi Ramirez - Last Filed: 11/23/19 19:18> CIWA Score Anxiety: 3 Agitation: 3 - Admission Criteria OASAS Guidelines: Admission for Medically Managed Detox: Requires at least one of the followin. CIWA greater than 12 2. Seizures within the past 24 hours 3. Delirium tremens within the past 24 hours 4. Hallucinations within the past 24 hours 5. Acute intervention needed for co occurring medical disorder 6. Acute intervention needed for co occurring psychiatric disorder 7. Severe withdrawal that cannot be handled at a lower level of care (continued vomiting, continued diarrhea, abnormal vital signs) requiring intravenous medication and/or fluids 8. Patient presents the following: CIWA greater than 12 Admission Criteria Met: Admission criteria met Admission ROS [facility] - [facility] History of Present Illness: Presents w/ alcohol withdrawal symptoms. Abnormal EKG . Patient denies chest pain, SOB, or vertigo. Patient states smokes crack. Plan: will repeat EKG in am. Patient Name: Ney Michael Date: 1990 Address: [address] [place] [address] Sex: Male Rx Written Rx Dispensed Drug Quantity Days Supply Prescriber Name Payment Method Dispenser 10/18/2019 10/18/2019 buprenorphine-naloxone 4-1 mg sl film 60 30 Barbara Ortiz Medicaid [facility] Date: 1990 Address: [address] [place] [id number] Sex: Male Rx Written Rx Dispensed Drug Quantity Days Supply Prescriber Name Payment Method Dispenser 11/09/2019 11/09/2019 buprenorphine-naloxone 8-2 mg sl film 20 10 Lowell Nath Medicaid [id number] Exam Limitations: No Limitations Admission Physical Exam [facility] - Vital Signs Vital Signs: Vital Signs - 24 hr 11/23/19 11/23/19 17:34 18:29 Temperature 98.2 F 98.2 F Pulse Rate 85 85 Respiratory 18 18 Rate Blood Pressure 117/66 117/66 - Diagnostic (1) Alcohol dependence with withdrawal, uncomplicated Current Visit: Yes Status: Acute (2) Opioid dependence on agonist therapy Current Visit: Yes Status: Chronic Comment: On Suboxone Cleared for Admission [facility] - Detox or Rehab Claeared for Rehab Admission: No <LanKal - Last Filed: 11/26/19 07:54> CIWA Score - Admission Criteria OASAS Guidelines: Admission for Medically Managed Detox: Requires at least one of the followin. CIWA greater than 12 2. Seizures within the past 24 hours 3. Delirium tremens within the past 24 hours 4. Hallucinations within the past 24 hours 5. Acute intervention needed for co occurring medical disorder 6. Acute intervention needed for co occurring psychiatric disorder 7. Severe withdrawal that cannot be handled at a lower level of care (continued vomiting, continued diarrhea, abnormal vital signs) requiring intravenous medication and/or fluids 8. Admitting History and Physical - Admission History of Present Illness: Note: Low CIWA due to having drank just before coming in for admission. History Source: Patient Limitations to Obtaining History: No Limitations Admission ROS [facility] - Ebola screening Have you traveled outside of the country in the last 21 days: No Have you had contact with anyone from an Ebola affected area: No Have you been sick,other than usual withdrawal symptoms: No Do you have a fever: No - Review of Systems Constitutional: No Symptoms Reported EENT: reports: No Symptoms Reported Respiratory: reports: No Symptoms reported Cardiac: reports: No Symptoms Reported GI: reports: No Symptoms Reported : reports: No Symptoms Reported Musculoskeletal: reports: No Symptoms Reported Integumentary: reports: No Symptoms Reported Neuro: reports: No Symptoms reported Endocrine: reports: No Symptoms Reported Hematology: reports: No Symptoms Reported Psychiatric: reports: Judgement Intact, Mood/Affect Appropiate, Orientated x3, Anxious Other Systems: Reviewed and Negative Patient History - Substances abused Alcohol Substance route: Oral Frequency: Daily Amount used: 2 pints vodka Age of first use: 15 Date of last use: 11/22/19 Admission Physical Exam S - Vital Signs Vital Signs: Vital Signs - 24 hr 11/25/19 11/25/19 11/25/19 08:41 13:27 16:35 Temperature 97.5 F L 97.5 F L 97.8 F Pulse Rate 98 H 94 H 80 Respiratory 18 16 18 Rate Blood Pressure 119/64 126/78 114/78 O2 Sat by Pulse 94 L Oximetry (%) 11/25/19 11/26/19 21:13 05:04 Temperature 98 F 97.7 F Pulse Rate 84 66 Respiratory 18 20 Rate Blood Pressure 155/88 108/45 L O2 Sat by Pulse 100 98 Oximetry (%) - Physical General Appearance: Yes: No Apparent Distress, Irritable, Anxious HEENTM: Yes: EOMI, Hearing grossly Normal, Normal ENT Inspection, Normocephalic, Normal Voice Respiratory: Yes: Chest Non-Tender, Lungs Clear, Normal Breath Sounds, No Respiratory Distress, No Accessory Muscle Use Neck: Yes: No masses,lesions,Nodules Breast: Yes: Within Normal Limits Cardiology: Yes: Regular Rhythm Abdominal: Yes: Normal Bowel Sounds, Soft Genitourinary: Yes: Within Normal Limits Back: Yes: Normal Inspection Neurological: Yes: respiratory director II-XII NML intact, Fully Oriented, Alert, Motor Strength 5/5, Normal Mood/Affect, Normal Response Integumentary: Yes: Normal Color, Warm Lymphatic: Yes: Within Normal Limits - Diagnostic (1) Alcohol dependence with withdrawal, uncomplicated Current Visit: Yes Status: Acute (2) Cocaine abuse Current Visit: Yes Status: Acute (3) ADHD (attention deficit hyperactivity disorder) Current Visit: Yes Status: Chronic (4) Opioid dependence on agonist therapy Current Visit: Yes Status: Chronic Comment: On Suboxone (5) Substance-induced anxiety disorder Current Visit: Yes Status: Acute (6) Substance-induced sleep disorder Current Visit: Yes Status: Acute (7) ADHD Current Visit: Yes Status: Chronic (8) Bipolar 1 disorder Current Visit: Yes Status: Chronic (9) Insomnia Current Visit: Yes Status: Chronic (10) Nicotine dependence Current Visit: Yes Status: Chronic Qualifiers: Nicotine product type: cigarettes Substance use status: uncomplicated Qualified Code(s): F17.210 - Nicotine dependence, cigarettes, uncomplicated Cleared for Admission [facility] - Detox or Rehab [facility] Level of Care: Medically Managed Detox Regimen/Protocol: Librium Claeared for Rehab Admission: No Inpatient Rehab Admission - Rehab Decision to Admit Inpatient rehab admission?: No
[2019-11-23] MEDS ORDERED: MAGNESIUM HYDROX 2400MG/30ML ORAL SUSPENSION 30 ML CUP PO PRN (18:23)
[2019-11-23] MEDS ORDERED: MENTHOL/PHENOL 1 EACH UD MM PRN (18:23)
[2019-11-23] MEDS ORDERED: ACETAMINOPHEN 325 MG TABLET (FP) PO PRN ×2 (18:23)
[2019-11-23] MEDS ORDERED: BISMUTH SUBSALICYLATE 524 MG/30 ML UD PO PRN (18:23)
[2019-11-23] MEDS ORDERED: chlordiazePOXIDE HCL 25 MG CAPSULE PO PRN (18:23)
[2019-11-23] MEDS ORDERED: MAG HYDROX/AL HYDROX/SIMETH 30 ML UNIT-DOSE CUP PO PRN (18:23)
[2019-11-23] MEDS ORDERED: IBUPROFEN 400 MG TABLET (FP) PO PRN (18:23)
[2019-11-23] MEDS ORDERED: MAGNESIUM CITRATE 300 ML BOTTLE PO PRN (18:23)
[2019-11-23] MEDS ORDERED: METHOCARBAMOL 500 MG TABLET PO PRN (18:23)
[2019-11-23] MEDS ORDERED: ONDANSETRON *ODT* 4 MG TABLET SL ONE (19:45)
[2019-11-23 20:50] VITALS: BMI 27.4
[2019-11-23] MEDS: hydrOXYzine PAMOATE 25 MG CAPSULE (FP) PO SCH (21:44)
[2019-11-23] MEDS: THIAMINE HCL 100 MG TABLET (FP) PO SCH (21:45)
[2019-11-23] MEDS: BUPRENORPHINE/NALOXONE 8 MG/2 MG FILM PACKET SL SCH (21:45)
[2019-11-23] MEDS: NICOTINE POLACRILEX 2 MG GUM BUC PRN (21:48)
[2019-11-23] MEDS ORDERED: QUEtiapine FUMARATE 100 MG TABLET (FP) PO ONE (22:00)
[2019-11-23] MEDS: MELATONIN 5 MG TABLETS PO SCH (22:11)
[2019-11-23] MEDS: chlordiazePOXIDE HCL 25 MG CAPSULE PO SCH (22:12)
[2019-11-24] MEDS: chlordiazePOXIDE HCL 25 MG CAPSULE PO SCH ×4 (07:17→22:15)
[2019-11-24] MEDS: hydrOXYzine PAMOATE 25 MG CAPSULE (FP) PO SCH ×5 (07:17→22:15)
[2019-11-24] MEDS ORDERED: NICOTINE 7 MG/24 HOURS TOPICAL PATCH TD SCH (10:00)
--- NOTE | 2019-11-24 10:11 | EKG ---
Test Reason : Blood Pressure : / mmHG Vent. Rate : 065 BPM Atrial Rate : 065 BPM P-R Int : 140 ms QRS Dur : 094 ms QT Int : 396 ms P-R-T Axes : 045 085 055 degrees QTc Int : 411 ms NORMAL SINUS RHYTHM WITH SINUS ARRHYTHMIA INCOMPLETE RIGHT BUNDLE BRANCH BLOCK WHEN COMPARED WITH ECG OF 04-OCT-2019 19:03, NO SIGNIFICANT CHANGE WAS FOUND Confirmed by SAURABH BAÑUELOS MD ([id number]) on 11/24/2019 10:10:37 AM Referred By: Kal Montenegro Confirmed By:SAURABH BAÑUELOS MD
--- NOTE | 2019-11-24 10:18 | CONSULT ---
[facility] Psychiatric Consult - Data Date of interview: 12/25/19 Admission source: [facility] Identifying data: Patient is a 29 year old single male, without children, unemployed, homeless, and is currently financially supported by unemployment benefits. This is one of multiple admissions for patient. Patient admitted to for acohol dependence. Substance Abuse History: h/o alcohol and cocaine dependence. Medical History: HTN, Hyperlipdemia, GI Bleed, Hepatitis A, Hepatitis B, Hepatitis C Psychiatric History: Mr. Michael denies history of psychiatric hospitalizations and suicide attempts. States that his first psychiatric contact was while in grade school. He was diagnosed with ADHD and treated with Adderall. Reports that in High school he was later diagnosed with Bipolar disorder by Dr. Sanchez at the [facility] in [facility]. Diagnosis of ADHD + Anxiety disorder. Patient was seen by Dr. Graves on 11/04/09 and was resumed on Straterra 40mg daily + Seroquel 200mg HS + Seroquel 50mg BID (resumed on psychotropic medications while completing rehab at [facility] in September-Oct 2019.). Patient is not currently treated with an outpatient psychiatrist. At present patient reports stable mood. Physical/Sexual Abuse/Trauma History: denies. Mental Status Exam - Mental Status Exam Alert and Oriented to: Time, Place, Person Cognitive Function: Good Patient Appearance: Well Groomed Mood: Hopeful Affect: Appropriate Patient Behavior: Appropriate, Cooperative Speech Pattern: Appropriate Voice Loudness: Normal Thought Process: Goal Oriented Thought Disorder: Not Present Hallucinations: Denies Suicidal Ideation: Denies Homicidal Ideation: Denies Insight/Judgement: Poor Sleep: Poorly Appetite: Fair Muscle strength/Tone: Normal Gait/Station: Normal Psychiatric Findings - Problem List ([place] 1, 2,3) (1) Alcohol use disorder Current Visit: Yes Status: Acute (2) Cocaine abuse Current Visit: Yes Status: Acute (3) ADHD (attention deficit hyperactivity disorder) Current Visit: Yes Status: Chronic (4) Anxiety disorder Current Visit: Yes Status: Chronic - Initial Treatment Plan Initial Treatment Plan: Psychoeducation provided. Detoxification in progress. Will order Straterra 40mg daily + Seroquel 200mg HS. (Will not order Seroquel 50mg BID PRN due to risk of oversedation. Patient in agreement with plan). Benefits and side effects discussed. Verbal consent given.
[2019-11-24] MEDS: BUPRENORPHINE/NALOXONE 8 MG/2 MG FILM PACKET SL SCH (10:34)
[2019-11-24] MEDS: PRENATAL VITAMINS W/ FOLIC ACID TABLET (FP) PO SCH (10:34)
[2019-11-24] MEDS: NICOTINE 21 MG/24 HOURS TOPICAL PATCH TD SCH (10:34)
--- NOTE | 2019-11-24 11:36 | PN ---
S CIWA - CIWA Score Nausea/Vomitin-No Nausea/No Vomiting Muscle Tremors: 2 Anxiety: 3 Agitation: 2 Paroxysmal Sweats: 3 Orientation: 0-Oriented Tacttile Disturbances: 0-None Auditory Disturbances: 0-None Visual Disturbances: 2-Mild Sensitivity Headache: 0-None Present CIWA-Ar Total Score: 12 BHS Progress Note (SOAP) Subjective: Complaints of anxiety, sweats, light sensitivity,tremors and agitation. Objective: 11/24/19 11:35 Vital Signs 11/24/19 05:59 Temperature 96.4 F L Pulse Rate 52 L Respiratory 18 Rate Blood Pressure 92/43 L O2 Sat by Pulse 96 Oximetry (%) Labs pending. Assessment: 11/24/19 11:35 Patient was seen and evaluated at bedside, alert and oriented x3, in no acute respiratory distress. Full ROM, ambulating without assistance. Skin warm to touch without lesion. Withdrawal symptoms. Plan: Continue detox protocol.
[2019-11-24] MEDS: ATOMOXETINE HCL 40 MG CAPSULE PO SCH (11:48)
[2019-11-24 12:27] LABS: HEMATOCRIT 43.2 % (35.4-49); HEMOGLOBIN 14.5 GM/dL (11.7-16.9); MCH 29.9 pg (25.7-33.7); MCHC 33.5 g/dl (32.0-35.9); MEAN CELL VOLUME 89.2 fl (80-96); PLATELET COUNT 224 K/MM3 (134-434); RBC 4.84 M/mm3 (4.00-5.60); RDW 14.5 % (11.9-15.9); WHITE BLOOD COUNT 5.7 K/mm3 (4.0-10.0)
[2019-11-24 12:39] LABS: ALBUMIN 4.2 g/dl (3.4-5.0); BILIRUBIN,TOTAL 0.6 mg/dL (0.2-1); BLOOD UREA NITROGEN 19.4 mg/dL (7-18); CALCIUM 9.4 mg/dL (8.5-10.1); POTASSIUM 4.3 mmol/L (3.5-5.1); TOT PROT 7.2 g/dl (6.4-8.2)
[2019-11-24] MEDS: NICOTINE POLACRILEX 2 MG GUM BUC PRN ×2 (14:04→23:11)
[2019-11-24] MEDS ORDERED: BUPRENORPHINE/NALOXONE 8 MG/2 MG FILM PACKET SL SCH (22:00)
[2019-11-24] MEDS: QUEtiapine FUMARATE 200 MG TABLET PO SCH (22:15)
[2019-11-24] MEDS: THIAMINE HCL 100 MG TABLET (FP) PO SCH (22:16)
[2019-11-24] MEDS: MELATONIN 5 MG TABLETS PO SCH (22:16)
[2019-11-25] MEDS: hydrOXYzine PAMOATE 25 MG CAPSULE (FP) PO SCH ×5 (05:20→22:10)
[2019-11-25] MEDS: chlordiazePOXIDE HCL 25 MG CAPSULE PO SCH ×4 (05:20→22:10)
[2019-11-25] MEDS: BUPRENORPHINE/NALOXONE 8 MG/2 MG FILM PACKET SL SCH ×2 (05:20→17:46)
[2019-11-25] MEDS: PRENATAL VITAMINS W/ FOLIC ACID TABLET (FP) PO SCH (10:08)
[2019-11-25] MEDS: NICOTINE 21 MG/24 HOURS TOPICAL PATCH TD SCH (10:09)
[2019-11-25] MEDS: ATOMOXETINE HCL 40 MG CAPSULE PO SCH (10:09)
[2019-11-25] MEDS: NICOTINE POLACRILEX 2 MG GUM BUC PRN ×3 (10:12→19:55)
--- NOTE | 2019-11-25 11:52 | EKG ---
Test Reason : Blood Pressure : / mmHG Vent. Rate : 075 BPM Atrial Rate : 075 BPM P-R Int : 134 ms QRS Dur : 092 ms QT Int : 376 ms P-R-T Axes : 045 082 060 degrees QTc Int : 419 ms NORMAL SINUS RHYTHM NORMAL ECG WHEN COMPARED WITH ECG OF 23-NOV-2019 17:55, NO SIGNIFICANT CHANGE WAS FOUND Confirmed by SAURABH BAÑUELOS MD ([id number]) on 11/25/2019 11:51:41 AM Referred By: Kal Montenegro Confirmed By:SAURABH BAÑUELOS MD
--- NOTE | 2019-11-25 16:52 | PN ---
S CIWA - CIWA Score Nausea/Vomitin-Mild Nausea/No Vomiting Muscle Tremors: 2 Anxiety: 2 Agitation: 2 Paroxysmal Sweats: 2 Orientation: 0-Oriented Tacttile Disturbances: 0-None Auditory Disturbances: 0-None Visual Disturbances: 0-None Headache: 0-None Present CIWA-Ar Total Score: 9 BHS Progress Note (SOAP) Subjective: Anxious, tremor, restless Objective: 11/25/19 16:50 Last Vital Signs Temp Pulse Resp BP Pulse Ox 97.5 F L 94 H 16 126/78 94 L 11/25/19 13:27 11/25/19 13:27 11/25/19 13:27 11/25/19 13:27 11/25/19 13:27 Laboratory Tests 11/23/19 11/24/19 11/24/19 21:00 07:50 07:50 WBC 5.7 RBC 4.84 Hgb 14.5 Hct 43.2 MCV 89.2 MCH 29.9 MCHC 33.5 RDW 14.5 Plt Count 224 MPV 10.0 Sodium 140 Potassium 4.3 Chloride 104 Carbon Dioxide 30 Anion Gap 6 L BUN 19.4 H Creatinine 1.0 Est GFR (CKD-EPI)AfAm 115.72 Est GFR (CKD-EPI)NonAf 99.85 Random Glucose 91 Calcium 9.4 Total Bilirubin 0.6 AST 29 ALT 32 Alkaline Phosphatase 90 Total Protein 7.2 Albumin 4.2 Syphilis Serology COVID-19 ([facility]) Not detected 11/24/19 07:50 WBC RBC Hgb Hct MCV MCH MCHC RDW Plt Count MPV Sodium Potassium Chloride Carbon Dioxide Anion Gap BUN Creatinine Est GFR (CKD-EPI)AfAm Est GFR (CKD-EPI)NonAf Random Glucose Calcium Total Bilirubin AST ALT Alkaline Phosphatase Total Protein Albumin Syphilis Serology Non-reactive COVID-19 ([facility]) Labs reviewed: bun 19.4 (mildly elevated) Assessment: 11/25/19 16:51 Withdrawal sxs Noted with azotemia Plan: Continue detox Encourage PO water intake Azotemia: encourage to drink more water
[2019-11-25] MEDS: QUEtiapine FUMARATE 200 MG TABLET PO SCH (22:10)
[2019-11-25] MEDS: THIAMINE HCL 100 MG TABLET (FP) PO SCH (22:10)
[2019-11-25] MEDS: MELATONIN 5 MG TABLETS PO SCH (22:11)
[2019-11-26] MEDS ORDERED: chlordiazePOXIDE HCL 10 MG CAPSULE PO PRN
[2019-11-26] MEDS: chlordiazePOXIDE HCL 10 MG CAPSULE PO SCH ×4 (05:11→22:06)
[2019-11-26] MEDS: hydrOXYzine PAMOATE 25 MG CAPSULE (FP) PO SCH (05:11)
[2019-11-26] MEDS: BUPRENORPHINE/NALOXONE 8 MG/2 MG FILM PACKET SL SCH ×2 (05:11→17:49)
--- NOTE | 2019-11-26 08:13 | PN ---
Teaching Attending Note Name of Resident: Jamey Ybarra ATTENDING PHYSICIAN STATEMENT I saw and evaluated the patient. I reviewed the resident's note and discussed the case with the resident. I agree with the resident's findings and plan as documented. SUBJECTIVE: OBJECTIVE: ASSESSMENT AND PLAN: Agree with resident's findings and plan for detox. Problem List - Problems (1) Alcohol dependence with withdrawal, uncomplicated Code(s): F10.230 - ALCOHOL DEPENDENCE WITH WITHDRAWAL, UNCOMPLICATED (2) Cocaine abuse Code(s): F14.10 - COCAINE ABUSE, UNCOMPLICATED (3) ADHD (attention deficit hyperactivity disorder) Code(s): F90.9 - ATTENTION-DEFICIT HYPERACTIVITY DISORDER, UNSPECIFIED TYPE (4) Opioid dependence on agonist therapy Code(s): F11.20 - OPIOID DEPENDENCE, UNCOMPLICATED (5) Substance-induced anxiety disorder Code(s): F19.980 - OTH PSYCHOACTIVE SUBSTANCE USE, UNSP W ANXIETY DISORDER (6) Substance-induced sleep disorder Code(s): F19.982 - OTH PSYCHOACTIVE SUBSTANCE USE, UNSP W SLEEP DISORDER (7) ADHD Code(s): F90.9 - ATTENTION-DEFICIT HYPERACTIVITY DISORDER, UNSPECIFIED TYPE (8) Bipolar 1 disorder Code(s): F31.9 - BIPOLAR DISORDER, UNSPECIFIED (9) Insomnia Code(s): G47.00 - INSOMNIA, UNSPECIFIED (10) Nicotine dependence Code(s): F17.200 - NICOTINE DEPENDENCE, UNSPECIFIED, UNCOMPLICATED Qualifiers: Nicotine product type: cigarettes Substance use status: uncomplicated Qualified Code(s): F17.210 - Nicotine dependence, cigarettes, uncomplicated
[2019-11-26] MEDS ORDERED: hydrOXYzine PAMOATE 25 MG CAPSULE (FP) PO PRN (08:40)
--- NOTE | 2019-11-26 10:09 | PN ---
BHS CIWA - CIWA Score Nausea/Vomitin-No Nausea/No Vomiting Muscle Tremors: 2 Anxiety: 1-Mildly Anxious Agitation: 1-Slight > Activity Paroxysmal Sweats: 1-Minimal Palms Moist Orientation: 0-Oriented Tacttile Disturbances: 0-None Auditory Disturbances: 0-None Visual Disturbances: 0-None Headache: 0-None Present CIWA-Ar Total Score: 5 BHS Progress Note (SOAP) Subjective: sweats restless anxiety Objective: 11/26/19 10:05 Vital Signs Temperature 97.7 F 11/26/19 05:04 Pulse Rate 66 11/26/19 05:04 Respiratory Rate 11/26/19 05:04 Blood Pressure 108/45 L 11/26/19 05:04 O2 Sat by Pulse Oximetry (%) 98 11/26/19 05:04 Laboratory Tests 11/23/19 11/24/19 11/24/19 21:00 07:50 07:50 WBC 5.7 RBC 4.84 Hgb 14.5 Hct 43.2 MCV 89.2 MCH 29.9 MCHC 33.5 RDW 14.5 Plt Count 224 MPV 10.0 Sodium 140 Potassium 4.3 Chloride 104 Carbon Dioxide 30 Anion Gap 6 L BUN 19.4 H Creatinine 1.0 Est GFR (CKD-EPI)AfAm 115.72 Est GFR (CKD-EPI)NonAf 99.85 Random Glucose 91 Calcium 9.4 Total Bilirubin 0.6 AST 29 ALT 32 Alkaline Phosphatase 90 Total Protein 7.2 Albumin 4.2 Syphilis Serology COVID-19 ([facility]) Not detected 11/24/19 07:50 WBC RBC Hgb Hct MCV MCH MCHC RDW Plt Count MPV Sodium Potassium Chloride Carbon Dioxide Anion Gap BUN Creatinine Est GFR (CKD-EPI)AfAm Est GFR (CKD-EPI)NonAf Random Glucose Calcium Total Bilirubin AST ALT Alkaline Phosphatase Total Protein Albumin Syphilis Serology Non-reactive COVID-19 ([facility]) labs noted aaox3 ambulating no acute distress Assessment: 11/26/19 10:06 withdrawals Plan: continue detox
[2019-11-26] MEDS: ATOMOXETINE HCL 40 MG CAPSULE PO SCH (10:10)
[2019-11-26] MEDS: NICOTINE 21 MG/24 HOURS TOPICAL PATCH TD SCH (10:10)
[2019-11-26] MEDS: PRENATAL VITAMINS W/ FOLIC ACID TABLET (FP) PO SCH (10:10)
[2019-11-26] MEDS: NICOTINE POLACRILEX 2 MG GUM BUC PRN ×2 (12:33→22:07)
[2019-11-26] MEDS: QUEtiapine FUMARATE 200 MG TABLET PO SCH (22:06)
[2019-11-26] MEDS: THIAMINE HCL 100 MG TABLET (FP) PO SCH (22:06)
[2019-11-27] MEDS: MELATONIN 5 MG TABLETS PO SCH (00:01)
[2019-11-27] MEDS ORDERED: chlordiazePOXIDE HCL 10 MG CAPSULE PO SCH (05:00)
[2019-11-27] MEDS: BUPRENORPHINE/NALOXONE 8 MG/2 MG FILM PACKET SL SCH (05:41)
[2019-11-27 06:46] VITALS: TEMP 97.7
[2019-11-27] MEDS: ATOMOXETINE HCL 40 MG CAPSULE PO SCH (09:07)
[2019-11-27] MEDS: PRENATAL VITAMINS W/ FOLIC ACID TABLET (FP) PO SCH (09:07)
[2019-11-27] MEDS: NICOTINE 21 MG/24 HOURS TOPICAL PATCH TD SCH (09:08)
[2019-11-27 09:30] VITALS: BP 126/62; PULSE 89
--- NOTE | 2019-11-27 10:16 | DS ---
[facility] Detox Discharge Summary Admission Date: 11/23/19 Discharge Date: 11/27/19 - History Present History: Alcohol Dependence, Cocaine Dependence - Physical Exam Results Vital Signs: Vital Signs Temperature 97.7 F 11/27/19 08:25 Pulse Rate 89 11/27/19 08:25 Respiratory Rate 18 11/27/19 08:25 Blood Pressure 126/62 11/27/19 08:25 O2 Sat by Pulse Oximetry (%) 99 11/27/19 06:44 Pertinent Admission Physical Exam Findings: Vital Signs Temperature 97.7 F 11/27/19 08:25 Pulse Rate 89 11/27/19 08:25 Respiratory Rate 18 11/27/19 08:25 Blood Pressure 126/62 11/27/19 08:25 O2 Sat by Pulse Oximetry (%) 99 11/27/19 06:44 Laboratory Tests 11/23/19 11/24/19 11/24/19 21:00 07:50 07:50 WBC 5.7 RBC 4.84 Hgb 14.5 Hct 43.2 MCV 89.2 MCH 29.9 MCHC 33.5 RDW 14.5 Plt Count 224 MPV 10.0 Sodium 140 Potassium 4.3 Chloride 104 Carbon Dioxide 30 Anion Gap 6 L BUN 19.4 H Creatinine 1.0 Est GFR (CKD-EPI)AfAm 115.72 Est GFR (CKD-EPI)NonAf 99.85 Random Glucose 91 Calcium 9.4 Total Bilirubin 0.6 AST 29 ALT 32 Alkaline Phosphatase 90 Total Protein 7.2 Albumin 4.2 Syphilis Serology COVID-19 ([facility]) Not detected 11/24/19 07:50 WBC RBC Hgb Hct MCV MCH MCHC RDW Plt Count MPV Sodium Potassium Chloride Carbon Dioxide Anion Gap BUN Creatinine Est GFR (CKD-EPI)AfAm Est GFR (CKD-EPI)NonAf Random Glucose Calcium Total Bilirubin AST ALT Alkaline Phosphatase Total Protein Albumin Syphilis Serology Non-reactive COVID-19 ([facility]) aaox3 ambulating no acute distress - Treatment Hospital Course: Detox Protocol Followed, Detoxed Safely, Responded well, Discharged Condition Good, Rehab Referral Accepted Patient has Accepted a Rehab Referral to: pt is going to [facility] to start with a [facility]oxone treatment program - Medication Discharge Medications: Ambulatory Orders Quetiapine Fumarate [Seroquel -] 50 mg PO PRN 11/05/19 Atomoxetine HCl [Strattera -] 40 mg PO DAILY #30 capsule 11/07/19 Buprenorphine/Naloxone [Suboxone 8Mg/2Mg Sl Film -] 1 each SL BID 7 Days #14 film NS MDD 2 11/07/19 Naloxone HCl [Narcan] 4 mg NS ASDIR PRN #1 spray 11/07/19 Quetiapine Fumarate [Seroquel -] 200 mg PO HS #30 tab 11/07/19 - Diagnosis (1) Alcohol dependence with withdrawal, uncomplicated Status: Chronic (2) Cocaine abuse Status: Chronic (3) Substance-induced anxiety disorder Status: Acute (4) Substance-induced sleep disorder Status: Acute (5) ADHD (attention deficit hyperactivity disorder) Status: Chronic Qualifiers: Attention deficit-hyperactivity disorder type: unspecified Qualified Code(s): F90.9 - Attention-deficit hyperactivity disorder, unspecified type (6) Anxiety disorder Status: Chronic (7) Bipolar 1 disorder Status: Chronic (8) Nicotine dependence Status: Chronic Qualifiers: Nicotine product type: cigarettes Substance use status: uncomplicated Qualified Code(s): F17.210 - Nicotine dependence, cigarettes, uncomplicated (9) Substance induced mood disorder Status: Chronic - AMA Did Patient Leave Against Medical Advice: No
[2019-11-28] MEDS ORDERED: chlordiazePOXIDE HCL 10 MG CAPSULE PO ONE (05:00)
== END 2019-11-27 09:18 | disposition home or self-care (01) | DRG 773 ==
LOC: YASAS 16:24 → Y6N 19:37
PROVIDERS: ADMIT Allergy & Immunology; ATTEND Allergy & Immunology
PROC: HZ2ZZZZ Detoxification Services for Substance Abuse Treatment (ICD-10-PCS; principal; 2019-11-23)
DX: F10.230 Alcohol dependence with withdrawal, uncomplicated (principal); F11.20 Opioid dependence, uncomplicated; F14.20 Cocaine dependence, uncomplicated; F17.210 Nicotine dependence, cigarettes, uncomplicated; F19.280 Other psychoactive substance dependence with psychoactive substance-induced anxiety disorder; F19.282 Other psychoactive substance dependence with psychoactive substance-induced sleep disorder; F19.24 Other psychoactive substance dependence with psychoactive substance-induced mood disorder; F31.9 Bipolar disorder, unspecified; F41.9 Anxiety disorder, unspecified; F90.9 Attention-deficit hyperactivity disorder, unspecified type; G47.00 Insomnia, unspecified; R79.89 Other specified abnormal findings of blood chemistry; R94.31 Abnormal electrocardiogram [ECG] [EKG]
CPT/HCPCS: 36415; 80053; 85027; 86780; 93005; 93010; U0003

== ENCOUNTER 2020-01-04 12:45 | Inpatient (IN) | payer OTHER ==
--- NOTE | 2020-01-04 13:56 | BHS.RME ---
Substance Use & Tx History - Substance Use History Heroin Substance amount: 1 bundle Frequency of use: Daily Cocaine- Powder Frequency of use: Less than 3 times per week Substance route: Smoking Date of Last Use: 01/03/20 Marijuana/Hashish Substance amount: 1 blunt Frequency of use: Less than 3 times per week Substance route: Smoking Date of Last Use: 01/03/20 Physical/Psych/Mental Status - Behavior General Behavior: Increased activity (restlessness, agitation) Eye Contact: Normal - Cooperativeness Cooperativeness: Cooperative - Thinking Thought Processes: Tight, Logical, Goal Directed - Physical Health Problems Is patient presently having any pain?: No Does patient presently have any injuries (include location): No Does patient currently have a fever: No Is patient : No COWS - Scale Resting Pulse: 0= [place] 80 or Below Sweatin= Chills/Flushing Restless Observation: 3= Extraneous Movement Pupil Size: 1= Pupils >than Normal Bone or Joint Aches: 1= Mild Discomfort Runny Nose/ Eye Tearin= Nasal Congestion GI Upset > 30mins: 1= Stomach Cramp Tremor Observation: 1= Tremor Mcdonald, Not Seen Yawning Observation: 1= 1-2x During Session Anxiety or Irritability: 1=Feels Anxious/Irritable Goose Flesh Skin: 3=Piloerection COWS Score: 14
[2020-01-04 14:48] VITALS: BMI 26.8
--- NOTE | 2020-01-04 15:02 | HP ---
"COWS - Scale Resting Pulse: 0= [place] 80 or Below Sweatin= Chills/Flushing Restless Observation: 3= Extraneous Movement Pupil Size: 1= Pupils >than Normal Bone or Joint Aches: 1= Mild Discomfort Runny Nose/ Eye Tearin= Nasal Congestion GI Upset > 30mins: 1= Stomach Cramp Tremor Observation: 1= Tremor How[place], Not Seen Yawning Observation: 1= 1-2x During Session Anxiety or Irritability: 1=Feels Anxious/Irritable Goose Flesh Skin: 3=Piloerection COWS Score: 14 CIWA Score - Admission Criteria OASAS Guidelines: Admission for Medically Managed Detox: Requires at least one of the followin. CIWA greater than 12 2. Seizures within the past 24 hours 3. Delirium tremens within the past 24 hours 4. Hallucinations within the past 24 hours 5. Acute intervention needed for co occurring medical disorder 6. Acute intervention needed for co occurring psychiatric disorder 7. Severe withdrawal that cannot be handled at a lower level of care (continued vomiting, continued diarrhea, abnormal vital signs) requiring intravenous medication and/or fluids 8. Admitting History and Physical - Admission Chief Complaint: Mr. Michael presents to [facility] requesting detox for heroine use. History of Present Illness: Mr. Michael is a 29 yo man who presents to [facility] requesting detox from heroin. He has been tx in the past with Suboxone, but prefers to be admitted for detox and then go to rehab and possibly restart Suboxone He comes today with his last rx for Suboxone, counted 30 PMH: none PSH: none Psych: ADHD, depressin: Seroquel 200 hx, Stratera Substance Use History Heroin Substance amount: 1 bundle Frequency of use: Daily Last use 2 days ago first use age 19 yo Cocaine- Powder Frequency of use: Less than 3 times per week Substance route: Smoking Date of Last Use: 01/03/20 First use age 28y Marijuana/Hashish Substance amount: 1 blunt Frequency of use: Less than 3 times per week Substance route: Smoking Date of Last Use: 01/03/20 First use age 16 y Nicotine: 1-2 ppd Began age 16y Pt states one rx was while in rehab: [facility] Ney Michael, 1990 Search Date: 01/04/2020 14:56:56 PM The Drug Utilization Report below displays all of the controlled substance prescriptions, if any, that your patient has filled in the last twelve months. The information displayed on this report is compiled from pharmacy submissions to the Department, and accurately reflects the information as submitted by the pharmacies. This report was requested by: Nikky Esteban | Reference #: [id number] Others' Prescriptions Patient Name: Ney Michael Date: 1990 Address: [address] [place] [address] Sex: Male Rx Written Rx Dispensed Drug Quantity Days Supply Prescriber Name 12/04/2019 12/04/2019 buprenorphine-naloxone 8-2 mg sl film 28 28 Christine Hernadez Date: 1990 Address: [address] [place] [address] Sex: Male Rx Written Rx Dispensed Drug Quantity Days Supply Prescriber Name 10/18/2019 10/18/2019 buprenorphine-naloxone 4-1 mg sl film 60 30 Barbara Ortiz Date: 1990 Address: [address] [place] [address] Sex: Male Rx Written Rx Dispensed Drug Quantity Days Supply Prescriber Name 11/22/2019 12/02/2019 buprenorphine-naloxone 8-2 mg sl film 28 14 Lowell Nath 11/09/2019 11/09/2019 buprenorphine-naloxone 8-2 mg sl film 20 10 Lowell Nath History Source: Patient Limitations to Obtaining History: No Limitations - Past Medical History Psych: Yes: Anxiety, Depression - Past Surgical History Past Surgical History: Yes: None - Smoking History Smoking history: Current every day smoker Have you smoked in the past 12 months: Yes Aproximately how many cigarettes per day: 20 - Alcohol/Substance Use History of Substance Use: reports: Cocaine, Heroin, Marijuana Date of Last Use: 10/07/19 - Social History ADL: Independent Occupation: unemployed, construction carpentry History of Recent Travel: No Admission [facility] Allergies/Adverse Reactions: Allergies Allergy/AdvReac Type Severity Reaction Status Date / Time No Known Allergies Allergy Verified 11/23/19 20:41 Exam Limitations: No Limitations - Ebola screening Have you traveled outside of the country in the last 21 days: No Have you been sick,other than usual withdrawal symptoms: No Do you have a fever: No - Review of Systems Constitutional: No Symptoms Reported EENT: reports: No Symptoms Reported Respiratory: reports: No Symptoms reported Cardiac: reports: No Symptoms Reported GI: reports: Nausea : reports: No Symptoms Reported Musculoskeletal: reports: No Symptoms Reported, Other (aches) Integumentary: reports: No Symptoms Reported Neuro: reports: No Symptoms reported Endocrine: reports: No Symptoms Reported Hematology: reports: No Symptoms Reported Psychiatric: reports: Anxious Patient History - Patient Medical History Hx Asthma: No Hx Chronic Obstructive Pulmonary Disease (COPD): No Hx Cardiac Disorders: No Hx Hypertension: No Hx Seizures: No Hx Diabetes: No Hx Gastrointestinal Disorders: No Hx Genitourinary Disorders: No Hx Sexually Transmitted Disorders: No Hx Renal Disease (ESRD): No Hx Depression: Yes Hx Suicide Attempt: No Hx Schizophrenia: No - Patient Surgical History Past Surgical History: No Hx Neurologic Surgery: No Hx Cataract Extraction: No Hx Cardiac Surgery: No Hx Lung Surgery: No Hx Breast Surgery: No Hx Breast Biopsy: No Hx Abdominal Surgery: No Hx Appendectomy: No Hx Cholecystectomy: No Hx Genitourinary Surgery: No Hx Section: No Hx Orthopedic Surgery: No Anesthesia Reaction: No - PPD History Date: 10/06/19 Results: neg - Smoking Cessation Smoking history: Current every day smoker Have you smoked in the past 12 months: Yes Aproximately how many cigarettes per day: 20 Cigars Per Day: 0 Hx Chewing Tobacco Use: No Initiated information on smoking cessation: Yes 'Breaking Loose' booklet given: 01/04/20 Admission Physical Exam BHS - Vital Signs Vital Signs: Vital Signs - 24 hr 01/04/20 14:44 Temperature 97.8 F Pulse Rate 70 Respiratory 18 Rate Blood Pressure 108/60 - Physical General Appearance: Yes: No Apparent Distress, Nourished, Appropriately Dressed HEENTM: Yes: EOMI, Hearing grossly Normal, Normocephalic, Normal Voice Respiratory: Yes: Lungs Clear, Normal Breath Sounds, No Respiratory Distress, No Accessory Muscle Use Neck: Yes: Within Normal Limits, Supple Breast: Yes: Breast Exam Deferred Cardiology: Yes: Regular Rhythm, Regular Rate Abdominal: Yes: Normal Bowel Sounds, Non Tender, Flat, Soft Genitourinary: Yes: Other (deferred) Back: Yes: Normal Inspection Musculoskeletal: Yes: Gait Steady Extremities: Yes: Normal Inspection, Non-Tender Neurological: Yes: Alert, Normal Response Integumentary: Yes: Track Cleaning - Diagnostic (1) Opioid withdrawal Current Visit: Yes Status: Acute Comment: 1. pt has not taken Suboxone in one month 2. will admit for methadone detox 3. plan rehab post detox (2) Cannabis abuse Current Visit: Yes Status: Acute (3) Bipolar 1 disorder Current Visit: Yes Status: Chronic (4) Cocaine abuse Current Visit: Yes Status: Acute (5) Nicotine dependence Current Visit: Yes Status: Acute Qualifiers: Nicotine product type: cigarettes Substance use status: uncomplicated Qualified Code(s): F17.210 - Nicotine dependence, cigarettes, uncomplicated Cleared for Admission BHS - Detox or Rehab [facility] Level of Care: Medically Managed Detox Regimen/Protocol: Methadone Breathalyzer - Breathalyzer Breathalyzer: 0 Urine Drug Screen - Test Device Lot number: [id number] Expiration date: 07/03/21 - Control Is test valid?: Yes - Results Drug screen NEGATIVE: No Urine drug screen results: THC-Marijuana, DALIA-Cocaine, FEN-Fentanyl, MOP-Opiates Inpatient Rehab Admission - Rehab Decision to Admit Inpatient rehab admission?: No"
[2020-01-04] MEDS ORDERED: MENTHOL/PHENOL 1 EACH UD MM PRN (15:10)
[2020-01-04] MEDS ORDERED: MAGNESIUM CITRATE 300 ML BOTTLE PO PRN (15:10)
[2020-01-04] MEDS ORDERED: ONDANSETRON *ODT* 4 MG TABLET SL PRN (15:10)
[2020-01-04] MEDS ORDERED: METHADONE HCL 10 MG TABLET (FOR DETOX USE ONLY) PO ONE (15:10)
[2020-01-04] MEDS ORDERED: MAG HYDROX/AL HYDROX/SIMETH 30 ML UNIT-DOSE CUP PO PRN (15:10)
[2020-01-04] MEDS ORDERED: METHOCARBAMOL 500 MG TABLET PO PRN (15:10)
[2020-01-04] MEDS ORDERED: BISMUTH SUBSALICYLATE 524 MG/30 ML UD PO PRN (15:10)
[2020-01-04] MEDS ORDERED: IBUPROFEN 400 MG TABLET (FP) PO PRN (15:10)
[2020-01-04] MEDS ORDERED: cloNIDine HCL 0.1 MG TABLET PO PRN (15:10)
[2020-01-04] MEDS ORDERED: MAGNESIUM HYDROX 2400MG/30ML ORAL SUSPENSION 30 ML CUP PO PRN (15:10)
[2020-01-04] MEDS ORDERED: ACETAMINOPHEN 325 MG TABLET (FP) PO PRN ×2 (15:10)
--- OUTSIDE RECORDS SUMMARY | 2020-01-04 15:26 | XMS ---
:1990 Author Organization [facility] Support Name Relationship Address Phone UE Unavailable Unavailable Unavailable AYE PARSON [place], [place] HILL MOVERS Unavailable Unavailable Unavailable ISAMAR LOMAX [employer]NER [employer] [place], [place] ISAMAR LOMAX Other UKN Unavailable [place], [place] X[place] AYE PARSON [place] Unavailable [place], [place] XXXXX DAVID GAY Unavailable [address] [phone] [place] [address] Re-disclosure Warning The records that you are about to access may contain information from federally- assisted alcohol or drug abuse programs. If such information is present, then the following federally mandated warning applies: This information has been disclosed to you from records protected by federal confidentiality rules (42 CFR part 2). The federal rules prohibit you from making any further disclosure of this information unless further disclosure is expressly permitted by the written consent of the person to whom it pertains or as otherwise permitted by 42 CFR part 2. A general authorization for the release of medical or other information is NOT sufficient for this purpose. The Federal rules restrict any use of the information to criminally investigate or prosecute any alcohol or drug abuse patient.The records that you are about to access may contain highly sensitive health information, the redisclosure of which is protected by Article 27-F of the [place] State Public Health law. If you continue you may haveaccess to information: Regarding HIV / AIDS; Provided by facilities licensed or operated by the [facility] Office of Mental Health; or Provided by the [facility] Office for People With Developmental Disabilities. If such information is present, then the following [facility] mandated warning applies: This information has been disclosed to you from confidential records which are protected by state law. State law prohibits you from making any further disclosure of this information without the specific written consent of the person to whom it pertains, or as otherwise permitted by law. Any unauthorized further disclosure in violation of state law may result in a fine or halfway sentence or both. A general authorization for the release of medical or other information is NOT sufficient authorization for further disclosure. Insurance Providers Payer name Policy type Policy ID Covered Covered alliance party's Policy P yancy / Coverage alliance party ID relationship to Perez Inf ormation type perez [place] [id number] SP [id number] [place] [id number] SP [id number] MEDICAID COMM PLAN [place] [id number] PT [id number] 000 [facility] Results ID Date Data Source [id number] 11/23/2019 09:00:00 PM EDT [facility] Name Value Range Interpretation Description Data Sup porting Code Source(s) Document(s ) SARS [facility] coronavirus 2 RNA This lab was ordered by [facility] and reported by [facility]. ID Date Data Source [id number] 11/02/2019 02:30:00 PM EDT [facility] Name Value Range Interpretation Description Data Sup porting Code Source(s) Document(s ) SARS [facility] coronavirus 2 RNA This lab was ordered by [facility] and reported by [facility]. ID Date Data Source [id number] 10/08/2019 12:50:00 PM EDT [facility] Name Value Range Interpretation Description Data Sup porting Code Source(s) Document(s ) SARS [facility] coronavirus 2 RNA This lab was ordered by [facility] and reported by [facility]. ID Date Data Source [id number] 2019 11:00:00 PM EDT [facility] Name Value Range Interpretation Description Data Sup porting Code Source(s) Document(s ) SARS [facility] coronavirus 2 RNA This lab was ordered by [facility] and reported by [facility]. Procedure
[2020-01-04 16:23] LABS: HEMATOCRIT 40.2 % (35.4-49); HEMOGLOBIN 13.7 GM/dL (11.7-16.9); MCH 30.2 pg (25.7-33.7); MCHC 34.1 g/dl (32.0-35.9); MEAN CELL VOLUME 88.5 fl (80-96); MEAN PLT VOLUME 9.5 fl (7.5-11.1); PLATELET COUNT 226 K/MM3 (134-434); RBC 4.54 M/mm3 (4.00-5.60); RDW 13.8 % (11.9-15.9)
[2020-01-04 16:36] LABS: ALBUMIN 4.1 g/dl (3.4-5.0); BILIRUBIN,TOTAL 0.8 mg/dL (0.2-1); BLOOD UREA NITROGEN 12.7 mg/dL (7-18); CALCIUM 8.9 mg/dL (8.5-10.1); CREATININE 0.9 mg/dL (0.55-1.3); POTASSIUM 4.6 mmol/L (3.5-5.1); TOT PROT 7.6 g/dl (6.4-8.2)
--- NOTE | 2020-01-04 17:00 | CONSULT ---
[facility] Psychiatric Consult - Data Date of interview: 01/04/20 Admission source: [facility] Identifying data: Patient is a 29 year old single male, without children, unemployed, homeless, and is currently financially supported by unemployment benefits. This is one of multiple admissions for patient. Patient admitted to for acohol dependence. Substance Abuse History: Substance Use History. Heroin. Substance amount: 1 bundle. Frequency of use: Daily. Last use 2 days ago. first use age 19 yo. Cocaine- Powder. Frequency of use: Less than 3 times per week. Substance route: Smoking. Date of Last Use: 01/03/20. First use age 28y. Mar ijuana/Hashish. Substance amount: 1 blunt. Frequency of use: Less than 3 times per week. Substance route: Smoking. Date of Last Use: 01/03/20. First use age 16 y. Nicotine: 1-2 ppd. Began age 16y Medical History: denies. endorses good health. Psychiatric History: Mr. Michael denies history of psychiatric hospitalizations and suicide attempts. States that his first psychiatric contact was while in grade school which resulted in a diagnosis of ADHD and he was treated with Adderall. Reports that in High school he was later diagnosed with Bipolar disorder by Dr. Sanchez at the [facility] [address] in [facility]. Patient seen by typewriter operator automatic on 11/24/19 was resumed on Straterra 40mg daily + Seroquel 200mg HS. Patient is totally lost in outpatient psychiatric care but states that he does receive psychotropic medications when admitted to detox/ rehab facilites. Mr. Michael states that [facility] but while in treatment was prescribed the following medications. At present patient reports stable mood. Mental Status Exam - Mental Status Exam Alert and Oriented to: Time, Place, Person Cognitive Function: Good Patient Appearance: Well Groomed Mood: Hopeful Affect: Appropriate Patient Behavior: Cooperative Speech Pattern: Appropriate Voice Loudness: Normal Thought Process: Goal Oriented Thought Disorder: Not Present Hallucinations: Denies Suicidal Ideation: Denies Homicidal Ideation: Denies Insight/Judgement: Poor Sleep: Poorly Appetite: Fair Muscle strength/Tone: Normal Gait/Station: Normal Psychiatric Findings - Problem List ([place] 1, 2,3) (1) Cannabis abuse Current Visit: Yes Status: Chronic (2) Cocaine abuse Current Visit: Yes Status: Chronic (3) Opioid withdrawal Current Visit: Yes Status: Acute Comment: 1. pt has not taken Suboxone in one month 2. will admit for methadone detox 3. plan rehab post detox (4) ADHD (attention deficit hyperactivity disorder) Current Visit: Yes Status: Chronic Qualifiers: Attention deficit-hyperactivity disorder type: unspecified Qualified Code(s): F90.9 - Attention-deficit hyperactivity disorder, unspecified type (5) Anxiety disorder Current Visit: Yes Status: Chronic - Initial Treatment Plan Initial Treatment Plan: Psychoeducation provided. Detoxification in progress. Will order Straterra 40mg daily + Seroquel 200mg HS. Benefits and side effects discussed. Verbal consent given.
[2020-01-04] MEDS: hydrOXYzine PAMOATE 25 MG CAPSULE (FP) PO SCH ×2 (17:32→22:27)
[2020-01-04] MEDS: MELATONIN 5 MG TABLETS PO SCH (22:27)
[2020-01-04] MEDS: THIAMINE HCL 100 MG TABLET (FP) PO SCH (22:27)
[2020-01-04] MEDS: QUEtiapine FUMARATE 200 MG TABLET PO SCH (22:27)
[2020-01-04] MEDS: NICOTINE POLACRILEX 2 MG GUM BUC PRN (22:28)
[2020-01-05] MEDS: hydrOXYzine PAMOATE 25 MG CAPSULE (FP) PO SCH ×5 (07:48→22:06)
[2020-01-05] MEDS ORDERED: METHADONE HCL 5 MG TABLET (FOR DETOX USE ONLY) ONE (09:47)
[2020-01-05] MEDS ORDERED: METHADONE HCL 10 MG TABLET (FOR DETOX USE ONLY) ONE (09:47)
[2020-01-05] MEDS ORDERED: METHADONE (DETOX) 20 MG, METHADONE (DETOX) 5 MG PO ONE (10:00)
[2020-01-05] MEDS: PRENATAL VITAMINS W/ FOLIC ACID TABLET (FP) PO SCH (10:30)
[2020-01-05] MEDS: NICOTINE 7 MG/24 HOURS TOPICAL PATCH TD SCH (10:30)
[2020-01-05] MEDS: NICOTINE POLACRILEX 2 MG GUM BUC PRN ×2 (10:32→17:48)
[2020-01-05] MEDS: ATOMOXETINE HCL 40 MG CAPSULE PO SCH (13:02)
--- NOTE | 2020-01-05 13:13 | PN ---
BHS COWS - Scale Resting Pulse: 0= [place] 80 or Below Sweatin= Chills/Flushing Restless Observation: 1= Difficult to Sit Still Pupil Size: 0= Normal to Room Light Bone or Joint Aches: 2= Severe Diffuse Aches Runny Nose/ Eye Tearin= None GI Upset > 30mins: 0= None Tremor Observation of Outstretched Hands: 2= Slight Tremor Visible Yawning Observation: 0= None Anxiety or Irritability: 0= None Goose Flesh Skin: 3=Piloerection COWS Score: 9 BHS Progress Note (SOAP) Subjective: Complaints of chills, sweats, anxiety, and joints ache Objective: 01/05/20 13:11 Vital Signs 01/05/20 01/05/20 06:20 09:08 Temperature 97.3 F L 97.8 F Pulse Rate 65 69 Respiratory 18 18 Rate Blood Pressure 99/60 109/59 L O2 Sat by Pulse 99 Oximetry (%) Laboratory Last Values WBC 5.0 K/mm3 (4.0-10.0) 01/04/20 15:15 RBC 4.54 M/mm3 (4.00-5.60) 01/04/20 15:15 Hgb 13.7 GM/dL (11.7-16.9) 01/04/20 15:15 Hct 40.2 % (35.4-49) 01/04/20 15:15 MCV 88.5 fl (80-96) 01/04/20 15:15 MCH 30.2 pg (25.7-33.7) 01/04/20 15:15 MCHC 34.1 g/dl (32.0-35.9) 01/04/20 15:15 RDW 13.8 % (11.9-15.9) 01/04/20 15:15 Plt Count 226 K/MM3 (134-434) 01/04/20 15:15 MPV 9.5 fl (7.5-11.1) 01/04/20 15:15 Sodium 136 mmol/L (136-145) 01/04/20 15:15 Potassium 4.6 mmol/L (3.5-5.1) 01/04/20 15:15 Chloride 99 mmol/L (98-107) 01/04/20 15:15 Carbon Dioxide 32 mmol/L (21-32) 01/04/20 15:15 Anion Gap 5 MMOL/L (8-16) L 01/04/20 15:15 BUN 12.7 mg/dL (7-18) 01/04/20 15:15 Creatinine 0.9 mg/dL (0.55-1.3) 01/04/20 15:15 Est GFR (CKD-EPI)AfAm 131.44 01/04/20 15:15 Est GFR (CKD-EPI)NonAf 113.41 01/04/20 15:15 Random Glucose 94 mg/dL (74-106) 01/04/20 15:15 Calcium 8.9 mg/dL (8.5-10.1) 01/04/20 15:15 Total Bilirubin 0.8 mg/dL (0.2-1) 01/04/20 15:15 AST 39 U/L (15-37) H 01/04/20 15:15 ALT 107 U/L (13-61) H 01/04/20 15:15 Alkaline Phosphatase 151 U/L (45-117) H 01/04/20 15:15 Total Protein 7.6 g/dl (6.4-8.2) 01/04/20 15:15 Albumin 4.1 g/dl (3.4-5.0) 01/04/20 15:15 Syphilis Serology Non-reactive (NONREACTIVE) 01/04/20 15:15 HIV Ag/Ab Combo Qual Negative (NEGATIVE) 01/04/20 15:15 labs noted. Assessment: 01/05/20 13:11 Patient seen and examined, alert and oriented x3, in acute respiratory distress. Full ROM, ambulatory in the unit without assistance. Skin warm to touch without lesions. Mild withdrawal symptoms. Plan: Continue detox protocol.
[2020-01-05] MEDS: THIAMINE HCL 100 MG TABLET (FP) PO SCH (22:06)
[2020-01-05] MEDS: QUEtiapine FUMARATE 200 MG TABLET PO SCH (22:06)
[2020-01-05] MEDS: MELATONIN 5 MG TABLETS PO SCH (22:07)
[2020-01-06] MEDS: hydrOXYzine PAMOATE 25 MG CAPSULE (FP) PO SCH ×5 (07:20→22:04)
[2020-01-06] MEDS ORDERED: METHADONE HCL 10 MG TABLET (FOR DETOX USE ONLY) PO ONE (10:00)
[2020-01-06] MEDS: ATOMOXETINE HCL 40 MG CAPSULE PO SCH (10:27)
[2020-01-06] MEDS: PRENATAL VITAMINS W/ FOLIC ACID TABLET (FP) PO SCH (10:27)
[2020-01-06] MEDS: NICOTINE POLACRILEX 2 MG GUM BUC PRN ×3 (10:28→23:08)
[2020-01-06] MEDS: NICOTINE 7 MG/24 HOURS TOPICAL PATCH TD SCH (10:30)
--- NOTE | 2020-01-06 11:45 | PN ---
BHS COWS - Scale Resting Pulse: 0= [place] 80 or Below Sweatin= Chills/Flushing Restless Observation: 1= Difficult to Sit Still Pupil Size: 0= Normal to Room Light Bone or Joint Aches: 2= Severe Diffuse Aches Runny Nose/ Eye Tearin= None GI Upset > 30mins: 0= None Tremor Observation of Outstretched Hands: 1= Tremor Neche, Not Seen Yawning Observation: 0= None Anxiety or Irritability: 2=Irritable/Anxious Goose Flesh Skin: 0=Smooth Skin COWS Score: 7 BHS Progress Note (SOAP) Subjective: Complaints decreased appetite, chills, tremors and anxiety. Objective: 01/06/20 11:44 Vital Signs 01/06/20 01/06/20 05:26 08:52 Temperature 98.2 F 97.1 F L Pulse Rate 56 L 68 Respiratory 18 18 Rate Blood Pressure 102/62 142/68 O2 Sat by Pulse 98 98 Oximetry (%) Laboratory Last Values WBC 5.0 K/mm3 (4.0-10.0) 01/04/20 15:15 RBC 4.54 M/mm3 (4.00-5.60) 01/04/20 15:15 Hgb 13.7 GM/dL (11.7-16.9) 01/04/20 15:15 Hct 40.2 % (35.4-49) 01/04/20 15:15 MCV 88.5 fl (80-96) 01/04/20 15:15 MCH 30.2 pg (25.7-33.7) 01/04/20 15:15 MCHC 34.1 g/dl (32.0-35.9) 01/04/20 15:15 RDW 13.8 % (11.9-15.9) 01/04/20 15:15 Plt Count 226 K/MM3 (134-434) 01/04/20 15:15 MPV 9.5 fl (7.5-11.1) 01/04/20 15:15 Sodium 136 mmol/L (136-145) 01/04/20 15:15 Potassium 4.6 mmol/L (3.5-5.1) 01/04/20 15:15 Chloride 99 mmol/L (98-107) 01/04/20 15:15 Carbon Dioxide 32 mmol/L (21-32) 01/04/20 15:15 Anion Gap 5 MMOL/L (8-16) L 01/04/20 15:15 BUN 12.7 mg/dL (7-18) 01/04/20 15:15 Creatinine 0.9 mg/dL (0.55-1.3) 01/04/20 15:15 Est GFR (CKD-EPI)AfAm 131.44 01/04/20 15:15 Est GFR (CKD-EPI)NonAf 113.41 01/04/20 15:15 Random Glucose 94 mg/dL (74-106) 01/04/20 15:15 Calcium 8.9 mg/dL (8.5-10.1) 01/04/20 15:15 Total Bilirubin 0.8 mg/dL (0.2-1) 01/04/20 15:15 AST 39 U/L (15-37) H 01/04/20 15:15 ALT 107 U/L (13-61) H 01/04/20 15:15 Alkaline Phosphatase 151 U/L (45-117) H 01/04/20 15:15 Total Protein 7.6 g/dl (6.4-8.2) 01/04/20 15:15 Albumin 4.1 g/dl (3.4-5.0) 01/04/20 15:15 Syphilis Serology Non-reactive (NONREACTIVE) 01/04/20 15:15 HIV Ag/Ab Combo Qual Negative (NEGATIVE) 01/04/20 15:15 Labs noted. Assessment: 01/06/20 11:44 Alert and oriented x3, in no acute respiratory distress. Full ROM, ambulating in the unit without assistance. Withdrawal symptoms. Decreased appetite. Plan: Continue detox protocol. Add Ensure BID.
[2020-01-06] MEDS: QUEtiapine FUMARATE 200 MG TABLET PO SCH (22:04)
[2020-01-06] MEDS: THIAMINE HCL 100 MG TABLET (FP) PO SCH (22:04)
[2020-01-06] MEDS: MELATONIN 5 MG TABLETS PO SCH (22:05)
[2020-01-07] MEDS: hydrOXYzine PAMOATE 25 MG CAPSULE (FP) PO SCH ×2 (06:20→10:12)
[2020-01-07] MEDS ORDERED: METHADONE HCL 5 MG TABLET (FOR DETOX USE ONLY) ONE (08:59)
[2020-01-07] MEDS ORDERED: METHADONE HCL 10 MG TABLET (FOR DETOX USE ONLY) ONE (08:59)
[2020-01-07] MEDS ORDERED: METHADONE (DETOX) 10 MG, METHADONE (DETOX) 5 MG PO ONE (10:00)
[2020-01-07] MEDS: NICOTINE 7 MG/24 HOURS TOPICAL PATCH TD SCH (10:10)
[2020-01-07] MEDS: PRENATAL VITAMINS W/ FOLIC ACID TABLET (FP) PO SCH (10:11)
[2020-01-07] MEDS: ATOMOXETINE HCL 40 MG CAPSULE PO SCH (10:11)
[2020-01-07] MEDS: NICOTINE POLACRILEX 2 MG GUM BUC PRN ×3 (10:15→17:33)
--- NOTE | 2020-01-07 10:54 | PN ---
BHS COWS - Scale Resting Pulse: 0= [place] 80 or Below Sweatin= Chills/Flushing Restless Observation: 1= Difficult to Sit Still Pupil Size: 0= Normal to Room Light Bone or Joint Aches: 1= Mild Discomfort Runny Nose/ Eye Tearin= None GI Upset > 30mins: 0= None Tremor Observation of Outstretched Hands: 1= Tremor Wake, Not Seen Yawning Observation: 0= None Anxiety or Irritability: 1=Feels Anxious/Irritable Goose Flesh Skin: 0=Smooth Skin COWS Score: 5 BHS Progress Note (SOAP) Subjective: sweats tired body aches Objective: 01/07/20 10:53 Vital Signs Temperature 97.7 F 01/07/20 08:50 Pulse Rate 71 01/07/20 08:50 Respiratory Rate 16 01/07/20 08:50 Blood Pressure 102/50 L 01/07/20 08:50 O2 Sat by Pulse Oximetry (%) 100 01/07/20 08:50 Laboratory Tests 01/04/20 01/04/20 01/04/20 15:15 15:15 15:15 WBC 5.0 RBC 4.54 Hgb 13.7 Hct 40.2 MCV 88.5 MCH 30.2 MCHC 34.1 RDW 13.8 Plt Count 226 MPV 9.5 Sodium 136 Potassium 4.6 Chloride 99 Carbon Dioxide 32 Anion Gap 5 L BUN 12.7 Creatinine 0.9 Est GFR (CKD-EPI)AfAm 131.44 Est GFR (CKD-EPI)NonAf 113.41 Random Glucose 94 Calcium 8.9 Total Bilirubin 0.8 AST 39 H ALT 107 H Alkaline Phosphatase 151 H Total Protein 7.6 Albumin 4.1 Syphilis Serology Non-reactive COVID-19 ([facility]) HIV Ag/Ab Combo Qual 01/04/20 01/04/20 15:15 15:30 WBC RBC Hgb Hct MCV MCH MCHC RDW Plt Count MPV Sodium Potassium Chloride Carbon Dioxide Anion Gap BUN Creatinine Est GFR (CKD-EPI)AfAm Est GFR (CKD-EPI)NonAf Random Glucose Calcium Total Bilirubin AST ALT Alkaline Phosphatase Total Protein Albumin Syphilis Serology COVID-19 ([facility]) Not detected HIV Ag/Ab Combo Qual Negative aaox3 ambulating no acute distress Assessment: 01/07/20 10:54 withdrawals Plan: continue detox
[2020-01-07] MEDS ORDERED: NICOTINE 21 MG/24 HOURS TOPICAL PATCH TD ONE (12:03)
[2020-01-07] MEDS: hydrOXYzine PAMOATE 25 MG CAPSULE (FP) PO PRN (19:15)
[2020-01-07] MEDS: MELATONIN 5 MG TABLETS PO SCH (22:22)
[2020-01-07] MEDS: THIAMINE HCL 100 MG TABLET (FP) PO SCH (22:23)
[2020-01-07] MEDS: QUEtiapine FUMARATE 200 MG TABLET PO SCH (22:23)
[2020-01-08] MEDS ORDERED: NICOTINE 21 MG/24 HOURS TOPICAL PATCH TD SCH (10:00)
[2020-01-08] MEDS ORDERED: METHADONE HCL 10 MG TABLET (FOR DETOX USE ONLY) PO ONE (10:00)
--- NOTE | 2020-01-08 10:03 | PN ---
[facility] COWS - Scale Resting Pulse: 2= AR 101-120 Sweatin= Chills/Flushing Restless Observation: 1= Difficult to Sit Still Pupil Size: 0= Normal to Room Light Bone or Joint Aches: 1= Mild Discomfort Runny Nose/ Eye Tearin= None GI Upset > 30mins: 0= None Tremor Observation of Outstretched Hands: 0= None Yawning Observation: 0= None Anxiety or Irritability: 1=Feels Anxious/Irritable Goose Flesh Skin: 0=Smooth Skin COWS Score: 6 [facility] Progress Note (SOAP) Subjective: irritable restless anxiety Objective: 01/08/20 09:58 Vital Signs Temperature 97.3 F L 01/08/20 06:19 Pulse Rate 64 01/08/20 06:19 Respiratory Rate 20 01/08/20 06:19 Blood Pressure 99/59 L 01/08/20 06:19 O2 Sat by Pulse Oximetry (%) 98 01/08/20 06:19 Laboratory Tests 01/04/20 01/04/20 01/04/20 15:15 15:15 15:15 WBC 5.0 RBC 4.54 Hgb 13.7 Hct 40.2 MCV 88.5 MCH 30.2 MCHC 34.1 RDW 13.8 Plt Count 226 MPV 9.5 Sodium 136 Potassium 4.6 Chloride 99 Carbon Dioxide 32 Anion Gap 5 L BUN 12.7 Creatinine 0.9 Est GFR (CKD-EPI)AfAm 131.44 Est GFR (CKD-EPI)NonAf 113.41 Random Glucose 94 Calcium 8.9 Total Bilirubin 0.8 AST 39 H ALT 107 H Alkaline Phosphatase 151 H Total Protein 7.6 Albumin 4.1 Syphilis Serology Non-reactive COVID-19 ([facility]) HIV Ag/Ab Combo Qual 01/04/20 01/04/20 15:15 15:30 WBC RBC Hgb Hct MCV MCH MCHC RDW Plt Count MPV Sodium Potassium Chloride Carbon Dioxide Anion Gap BUN Creatinine Est GFR (CKD-EPI)AfAm Est GFR (CKD-EPI)NonAf Random Glucose Calcium Total Bilirubin AST ALT Alkaline Phosphatase Total Protein Albumin Syphilis Serology COVID-19 ([facility]) Not detected HIV Ag/Ab Combo Qual Negative labs noted aaox3 ambulating no acute distress Assessment: 01/08/20 10:00 withdrawals sx Plan: continue detox d/c in am
[2020-01-08] MEDS: NICOTINE POLACRILEX 2 MG GUM BUC PRN ×2 (10:11→19:58)
[2020-01-08] MEDS: ATOMOXETINE HCL 40 MG CAPSULE PO SCH (10:11)
[2020-01-08] MEDS: PRENATAL VITAMINS W/ FOLIC ACID TABLET (FP) PO SCH (10:11)
[2020-01-08] MEDS: hydrOXYzine PAMOATE 25 MG CAPSULE (FP) PO PRN ×2 (13:12→22:13)
[2020-01-08] MEDS: THIAMINE HCL 100 MG TABLET (FP) PO SCH (22:13)
[2020-01-08] MEDS: MELATONIN 5 MG TABLETS PO SCH (22:13)
[2020-01-08] MEDS: QUEtiapine FUMARATE 200 MG TABLET PO SCH (22:13)
[2020-01-09] MEDS ORDERED: METHADONE HCL 5 MG TABLET (FOR DETOX USE ONLY) PO ONE (06:00)
[2020-01-09 07:17] VITALS: BP 133/63; PULSE 76; TEMP 97.5
--- NOTE | 2020-01-09 08:53 | DS ---
[facility] Detox Discharge Summary Admission Date: 01/04/20 Discharge Date: 01/09/20 - History Present History: Alcohol Dependence - Physical Exam Results Vital Signs: Vital Signs Temperature 97.5 F L 01/09/20 05:55 Pulse Rate 76 01/09/20 05:55 Respiratory Rate 20 01/09/20 05:55 Blood Pressure 133/63 01/09/20 05:55 O2 Sat by Pulse Oximetry (%) 96 01/09/20 05:55 Laboratory Tests 01/04/20 01/04/20 01/04/20 15:15 15:15 15:15 WBC 5.0 RBC 4.54 Hgb 13.7 Hct 40.2 MCV 88.5 MCH 30.2 MCHC 34.1 RDW 13.8 Plt Count 226 MPV 9.5 Sodium 136 Potassium 4.6 Chloride 99 Carbon Dioxide 32 Anion Gap 5 L BUN 12.7 Creatinine 0.9 Est GFR (CKD-EPI)AfAm 131.44 Est GFR (CKD-EPI)NonAf 113.41 Random Glucose 94 Calcium 8.9 Total Bilirubin 0.8 AST 39 H ALT 107 H Alkaline Phosphatase 151 H Total Protein 7.6 Albumin 4.1 Syphilis Serology Non-reactive COVID-19 ([facility]) HIV Ag/Ab Combo Qual 01/04/20 01/04/20 15:15 15:30 WBC RBC Hgb Hct MCV MCH MCHC RDW Plt Count MPV Sodium Potassium Chloride Carbon Dioxide Anion Gap BUN Creatinine Est GFR (CKD-EPI)AfAm Est GFR (CKD-EPI)NonAf Random Glucose Calcium Total Bilirubin AST ALT Alkaline Phosphatase Total Protein Albumin Syphilis Serology COVID-19 ([facility]) Not detected HIV Ag/Ab Combo Qual Negative labs noted aaox3 ambulating no acute distress lungs CTA - Treatment Hospital Course: Detox Protocol Followed, Detoxed Safely, Responded well, Discharged Condition Good, Rehab Referral Accepted - Medication Discharge Medications: Ambulatory Orders Atomoxetine HCl [Strattera -] 40 mg PO DAILY #30 capsule 11/07/19 Quetiapine Fumarate [Seroquel -] 200 mg PO HS #30 tab 11/07/19 Buprenorphine/Naloxone [Suboxone 8Mg/2Mg Sl Film -] 2 each SL DAILY 01/04/20 - Diagnosis (1) Nicotine dependence Current Visit: Yes Status: Chronic Qualifiers: Nicotine product type: cigarettes Substance use status: uncomplicated Qualified Code(s): F17.210 - Nicotine dependence, cigarettes, uncomplicated (2) Opioid withdrawal Current Visit: Yes Status: Acute (3) ADHD (attention deficit hyperactivity disorder) Current Visit: Yes Status: Chronic Qualifiers: Attention deficit-hyperactivity disorder type: unspecified Qualified Code(s): F90.9 - Attention-deficit hyperactivity disorder, unspecified type (4) Anxiety disorder Current Visit: Yes Status: Chronic (5) Bipolar 1 disorder Current Visit: Yes Status: Chronic (6) Cannabis abuse Current Visit: Yes Status: Chronic (7) Cocaine abuse Current Visit: Yes Status: Chronic (8) Substance-induced anxiety disorder Current Visit: No Status: Acute (9) Substance-induced sleep disorder Current Visit: No Status: Acute (10) Alcohol dependence with withdrawal, uncomplicated Current Visit: Yes Status: Chronic (11) Substance induced mood disorder Current Visit: No Status: Chronic - AMA Did Patient Leave Against Medical Advice: No
== END 2020-01-09 08:56 | disposition home or self-care (01) | DRG 773 ==
LOC: YASAS 12:45 → Y6N 15:22
PROVIDERS: ADMIT Allergy & Immunology; ATTEND Allergy & Immunology
PROC: HZ2ZZZZ Detoxification Services for Substance Abuse Treatment (ICD-10-PCS; principal; 2020-01-04)
DX: F11.23 Opioid dependence with withdrawal (principal); F10.230 Alcohol dependence with withdrawal, uncomplicated; F14.10 Cocaine abuse, uncomplicated; F12.10 Cannabis abuse, uncomplicated; F17.210 Nicotine dependence, cigarettes, uncomplicated; F19.280 Other psychoactive substance dependence with psychoactive substance-induced anxiety disorder; F19.282 Other psychoactive substance dependence with psychoactive substance-induced sleep disorder; F19.24 Other psychoactive substance dependence with psychoactive substance-induced mood disorder; F31.9 Bipolar disorder, unspecified; F41.9 Anxiety disorder, unspecified; F90.9 Attention-deficit hyperactivity disorder, unspecified type; Z56.0 Unemployment, unspecified; Z59.0 Homelessness
CPT/HCPCS: 36415; 80053; 85027; 86780; 87389; C9803; J0735; U0003

== ENCOUNTER 2023-06-15 20:10 | Inpatient (IN) | payer OTHER ==
[2023-06-15 21:29] VITALS: BMI 23.3
[2023-06-15] MEDS ORDERED: POLYETHYLENE GLYCOL (HEALTHYLAX) 3350 17 GM PACKET PO PRN (23:49)
[2023-06-15] MEDS ORDERED: NALOXONE HCL 0.4 MG/ML VIAL IM PRN (23:49)
[2023-06-15] MEDS ORDERED: DOCUSATE SODIUM 100 MG CAPSULE (FP) PO PRN (23:49)
[2023-06-15] MEDS ORDERED: BENZOCAINE/MENTHOL (CHLORASEPTIC ) LOZENGE MM PRN (23:49)
[2023-06-15] MEDS ORDERED: BENZONATATE 200 MG CAPSULE PO PRN (23:49)
[2023-06-15] MEDS ORDERED: LOPERAMIDE HCL 2 MG CAPSULE PO PRN (23:49)
[2023-06-15] MEDS ORDERED: ACETAMINOPHEN 325 MG TABLET (FP) PO PRN (23:49)
[2023-06-15] MEDS ORDERED: MAGNESIUM HYDROX 2400MG/30ML ORAL SUSPENSION 30 ML CUP PO PRN (23:49)
[2023-06-15] MEDS ORDERED: NALOXONE HCL (KLOXXADO) 8 MG SPRAY NS PRN (23:49)
[2023-06-15] MEDS ORDERED: guaiFENesin 600 MG TABLET.ER (FP) PO PRN (23:49)
[2023-06-15] MEDS ORDERED: IBUPROFEN 400 MG TABLET (FP) PO PRN (23:49)
[2023-06-15] MEDS ORDERED: P-EPHED 60MG/TRIPROLIDI 2.5MG TABLET PO PRN (23:49)
[2023-06-16] MEDS: MELATONIN 5 MG TABLETS PO SCH (00:50)
[2023-06-16] MEDS ORDERED: hydrOXYzine PAMOATE 25 MG CAPSULE (FP) PO ONE (01:54)
[2023-06-16] MEDS ORDERED: MELATONIN 5 MG TABLETS ONE (01:54)
[2023-06-16] MEDS ORDERED: METHOCARBAMOL 500 MG TABLET ONE (01:54)
[2023-06-16] MEDS: hydrOXYzine PAMOATE 25 MG CAPSULE (FP) PO PRN (01:56)
[2023-06-16] MEDS: IBUPROFEN 600 MG TABLET (FP) PO PRN (01:56)
[2023-06-16] MEDS ORDERED: TUBERCULIN PPD 5 TU/0.1ML VIAL ID ONE (08:34)
[2023-06-16] MEDS: methaDONE HCL 40 MG DISPERSABLE TABLET PO SCH (09:55)
[2023-06-16] MEDS: TUBERCULIN PPD 5 TU/0.1ML SYRINGE (IN PATIENT USE ONLY) ID ONE (09:56)
[2023-06-16] MEDS: PRENATAL VITAMINS W/ FOLIC ACID TABLET (FP) PO SCH (09:56)
[2023-06-16 12:06] LABS: CHLORIDE 103 mmol/L (98-107); SODIUM 140 mmol/L (136-145)
[2023-06-16 12:09] LABS: ALBUMIN 3.8 g/dl (3.4-5.0); ANION GAP 9 mmol/L (4-13); BLOOD UREA NITROGEN 17.6 mg/dL (7-18); CO2 28 mmol/L (21-32); GLUCOSE,RANDOM 84 mg/dL (74-106)
[2023-06-16 12:12] LABS: CREATININE 0.8 mg/dL (0.55-1.3); HEMATOCRIT 38.7 % (35.4-49); HEMOGLOBIN 13.1 GM/dL (11.7-16.9); MCH 29.8 pg (25.7-33.7); MCHC 33.9 g/dl (32.0-35.9); MEAN PLT VOLUME 9.4 fl (7.5-11.1); PLATELET COUNT 240 10^3/uL (134-434); SGOT/AST 32 U/L (15-37); SGPT/ALT 83 U/L (13-61)
[2023-06-16 12:13] LABS: BILIRUBIN,TOTAL 0.3 mg/dL (0.2-1)
[2023-06-16 12:15] LABS: ALK PHOS 105 U/L (45-117)
[2023-06-16 12:56] LABS: SYPHILIS W/ RPR CONF NON-REACTIVE (NONREACTIVE)
[2023-06-16] MEDS: MAG HYDROX/AL HYDROX/SIMETH 30 ML UNIT-DOSE CUP PO PRN (16:48)
[2023-06-16] MEDS: THIAMINE HCL 100 MG TABLET (FP) PO SCH (21:24)
[2023-06-16] MEDS: QUEtiapine FUMARATE 50 MG TABLET PO SCH (21:24)
[2023-06-16] MEDS: NICOTINE POLACRILEX 2 MG LOZENGE BC PRN (21:25)
[2023-06-17] MEDS: ATOMOXETINE HCL 25 MG CAPSULE PO SCH (09:34)
[2023-06-17] MEDS: NICOTINE 14 MG/24 HOURS TOPICAL PATCH TD SCH (09:35)
[2023-06-17] MEDS: QUEtiapine FUMARATE 100 MG TABLET (FP) PO SCH (21:10)
[2023-06-19] MEDS ORDERED: QUEtiapine FUMARATE 50 MG TABLET ONE (20:17)
[2023-06-20] MEDS: NICOTINE 21 MG/24 HOURS TOPICAL PATCH TD SCH (10:10)
[2023-06-20 13:07] LABS: URINE APPEARANCE CLEAR; URINE BILIRUBIN NEGATIVE (NEGATIVE); URINE COLOR YELLOW; URINE GLUCOSE (UA) NEGATIVE (NEGATIVE); URINE KETONE NEGATIVE (NEGATIVE); URINE LEUK ESTERASE NEGATIVE (NEGATIVE); URINE NITRITE NEGATIVE (NEGATIVE); URINE PROTEIN NEGATIVE (NEGATIVE); URINE UROBILINOGEN 0.2 mg/dL (0.2-1.0)
[2023-06-20] MEDS: QUEtiapine FUMARATE 200 MG TABLET PO SCH (21:05)
[2023-06-25] MEDS: NICOTINE POLACRILEX 4 MG GUM BUC PRN (06:23)
[2023-06-30] MEDS: LIDOCAINE PATCH REMOVAL MC SCH (21:38)
[2023-07-07 06:44] VITALS: BP 113/65; PULSE 104; RESP 17; TEMP 97.3
[2023-07-07] MEDS: LIDOCAINE 5% TOPICAL PATCH TP PRN (09:49)
== END 2023-07-07 10:34 | disposition home or self-care (01) | DRG 772 ==
LOC: YASAS 20:10 → Y3W 06-16 01:58
PROVIDERS: ADMIT Allergy & Immunology; ATTEND Psychiatry & Neurology Pain Medicine
PROC: HZ42ZZZ Group Counseling for Substance Abuse Treatment, Cognitive-Behavioral (ICD-10-PCS; principal; 2023-06-16)
DX: F11.20 Opioid dependence, uncomplicated (principal); F10.20 Alcohol dependence, uncomplicated; F17.210 Nicotine dependence, cigarettes, uncomplicated; F19.280 Other psychoactive substance dependence with psychoactive substance-induced anxiety disorder; F19.282 Other psychoactive substance dependence with psychoactive substance-induced sleep disorder; F19.24 Other psychoactive substance dependence with psychoactive substance-induced mood disorder; F41.9 Anxiety disorder, unspecified; F32.A Depression, unspecified; M25.511 Pain in right shoulder; Z86.59 Personal history of other mental and behavioral disorders; Z28.310 Unvaccinated for COVID-19; Z28.9 Immunization not carried out for unspecified reason
CPT/HCPCS: 0241U-QW; 36415; 80053; 80305; 80307; 81003; 85027; 86780; 86803; 93005; 93010